=== PATIENT | female | born 1960 | race Caucasian/White ===

== ENCOUNTER → 2020-01-05 12:25 | Outpatient (CLI) | payer BC, SELFPAY ==
--- NOTE | ~2020-01-05 | MM_ITS ---
EXAMINATION: MM screening [facility] BI w lis HISTORY: Screening mammogram TECHNIQUE: Craniocaudal and mediolateral oblique 3-D tomosynthesis images were obtained and synthetic 2-D images were generated. CAD analysis was submitted and interpreted. COMPARISON: 12/12/2017, 11/26/2017, 11/21/2016 BREAST PARENCHYMAL COMPOSITION: The breasts are heterogeneously dense, which may obscure small masses . FINDINGS: There has been interval biopsy of calcifications previously seen in the right breast. There is no evidence of suspicious mass, calcification, or architectural distortion to suggest malignancy in either breast. There has been no suspicious interval change. IMPRESSION: 1. No mammographic evidence of malignancy. 2. Recommend routine screening mammography in one year. BI-RADS Category 1: Negative Reviewed, dictated and finalized at location A.
== END ==
PROVIDERS: PCP Internal Medicine; Visit Provider Obstetrics & Gynecology
DX: Z12.31 Encounter for screening mammogram for malignant neoplasm of breast (principal)
CPT/HCPCS: 77063; 77067

== ENCOUNTER 2020-09-03 01:02 | Outpatient (CLI) | payer BC, SELFPAY ==
[2020-09-03 18:31] LABS: SARS-CoV-2 RNA PCR Negative
== END 2020-09-03 01:03 | disposition home or self-care (01) ==
LOC: ANHCOVIDDT 01:02
PROVIDERS: PCP Internal Medicine; Visit Provider Plastic Surgery
DX: Z01.812 Encounter for preprocedural laboratory examination (principal); Z20.828 Contact with and (suspected) exposure to other viral communicable diseases
CPT/HCPCS: 87635; C9803; U0003

== ENCOUNTER 2020-09-05 08:26 | Outpatient (CLI) | payer BC, SELFPAY ==
[2020-09-05 09:01] LABS: Anion Gap 6 mmol/L (8-16); Blood Urea Nitrogen 14 mg/dL (7-17); Carbon Dioxide 27 mmol/L (22-30); Chloride 103 mmol/L (98-107); Estimated Glomerular Filt Rate > 60; Glucose 102 mg/dL (65-105); Potassium 4.4 mmol/L (3.4-5.0); Sodium 136 mmol/L (137-145)
== END 2020-09-05 08:27 | disposition home or self-care (01) ==
LOC: ANHSURGERY 08:28
PROVIDERS: Anesthesiology; PCP Internal Medicine; Visit Provider Plastic Surgery
DX: Z01.818 Encounter for other preprocedural examination (principal); I10 Essential (primary) hypertension
CPT/HCPCS: 36415; 80048

== ENCOUNTER 2020-09-07 01:47 | Day surgery (SDC) | payer BC, SELFPAY ==
[2020-08-22 15:33] VITALS: BMI 28.0
--- NOTE | 2020-09-06 14:10 | WPDANESEPPF ---
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 Patient Data Age: 60 Gender: F Height: 5 ft 3 in Weight: 72 kg Allergies Allergy/AdvReac Type Severity Reaction Status Date / Time Sulfa (Sulfonamide Allergy Unknown Verified 09/07/20 06:23 Antibiotics) Home Medications Medication Instructions Recorded Confirmed Type biotin 5,000 mcg-silicon dioxide See Rx Instructions .ROUTE .COMPLEX 08/14/19 09/07/20 History 10 pu-L-tjromlhf 50 mg tablet ER levocetirizine 5 mg tablet 5 mg PO DAILY 08/14/19 09/07/20 History olyhgcpedzyd-Kd-xpog-minerals 1 tablet PO DAILY 08/18/19 09/07/20 History alprazolam 0.5 mg tablet 0.5 mg PO BID PRN #90 tablet 01/25/20 08/27/20 Rx lisinopril 20 mg tablet 20 mg PO DAILY #90 tablet 05/24/20 09/07/20 Rx meloxicam 15 mg tablet 15 mg PO DAILY #90 tablet 06/02/20 09/07/20 Rx montelukast 10 mg tablet 10 mg PO DAILY #90 tablet 06/02/20 09/07/20 Rx citalopram 40 mg tablet 40 mg PO DAILY #90 tablet 06/03/20 09/07/20 Rx hydrochlorothiazide 12.5 mg tablet 12.5 mg PO DAILY #90 tablet 07/30/20 09/07/20 Rx acyclovir 400 mg PO DAILY PRN 08/22/20 08/27/20 History aspirin [Adult Low Dose Aspirin] 81 mg PO DAILY 08/22/20 09/07/20 History ergocalciferol (vitamin D2) 50,000 unit PO EVERY OTHER DAY 08/22/20 09/07/20 History Patient hx anesthesia problems: post op nausea/vomiting Family hx anesthesia problems: none PMFSH Past Medical History Medical History (Updated 09/06/20 @ 14:09 by Gama Molina MD) Depression Essential (primary) hypertension Hypercholesterolemia Social History Social History Smoking status: Never smoker Second hand tobacco smoke exposure: No Alcohol intake: current Drinks per week: 1 Substance use: never Living arrangements: alone Anes - Eval Final PreProcedure Day of Procedure 09/06/20 14:10 Patient weight: obese Heart: regular rate and rhythm Lungs: clear to auscultation Airway: Mallampati scale class II Neurological: alert and oriented Last oral intake: >/= 8 hours ASA classification: III Emergent: no Anesthetic plan: proceed Anesthesia type and monitoring: general LMA and standard monitoring Informed Consent: The patient's anesthetic plan and its attendant risks and benefits were discussed with the patient/family/POA. Questions were solicited and answers provided to the satisfaction of the patient/family/POA.
[2020-09-07] VITALS (9 sets, daily range): BP systolic 112–140; BP diastolic 63–90; PULSE 63–80; RESP 14–18; TEMP 36.1–36.2; O2SAT 92–100
--- NOTE | ~2020-09-07 | XR_ITS ---
EXAMINATION: XR surgery orthopedic DATE: 09/07/2020 10:27 INDICATION: Arthroplasty right thumb. TECHNIQUE: 2 intraoperative fluoroscopic views of right wrist were obtained. I was not present. Fluor oscopy exposure time was 2 minutes 48 seconds. COMPARISON: Right wrist radiograph 02/10/2018 FINDINGS: There are changes of resection of trapezium. There is a radiopaque marker ulnar to base of second metacarpal. IMPRESSION: 1. Surgical changes including trapezium resection. Reviewed, dictated and finalized at location A. EDUCATOR
[2020-09-07] MEDS: LACTATED RINGERS 1,000 ML 30 ML IV CONT ×2 (06:30→10:50)
[2020-09-07] MEDS: SCOPOLAMINE 1.5 MG PATCH TRANSDERM (07:11)
--- NOTE | 2020-09-07 07:13 | WPDHPUPDATE1 ---
History and Physical Update Update Date/Time: 09/07/20 07:13 History and Physical has been reviewed, including an updated exam of the patient. There are NO changes in the patient's condition. Risks, benefits, and alternatives have been discussed and questions answered. Patient agrees to proceed with procedure.
--- NOTE | 2020-09-07 07:18 | WPDHPUPDATE1 ---
History and Physical Update Update Date/Time: 09/07/20 07:18 The patient has requested removal of a tender subcutaneous mass of the right index DIPJ. We will add that to the consent. History and Physical has been reviewed, including an updated exam of the patient. There are NO changes in the patient's condition. Risks, benefits, and alternatives have been discussed and questions answered. Patient agrees to proceed with procedure.
[2020-09-07] MEDS: ceFAZolin 2 GM/D5W 50 ML 2 GM/50 ML BAG IVPB (07:27)
--- NOTE | 2020-09-07 07:28 | SUR.PREOP ---
0720 taken to bathroom to void.
[2020-09-07] MEDS: LIDO 1%/EPINEPHRINE 1:100,000 20 ML VIAL 5 ML INFILTRATE (08:21)
--- NOTE | 2020-09-07 09:15 | SUR.OPER ---
Dr. Jordan made aware of 1 hour tourniquet time
--- NOTE | 2020-09-07 11:01 | P.OPB_ITS ---
Procedure Note - Brief Procedure Note - Brief Date of procedure: 09/07/20 Pre-op diagnosis: Right First CMC Joint OA Post-op diagnosis: same Procedure performed: Right trapezium arthroplasty with Arthrex InternalBrace. Implants: Arthrex two hole fixation button. Anesthesia: GETA Surgeon: Julien Jordan MD In Store Representative: Rachid Estimated blood loss (mL): 10 Packing: No Pathology: none sent Complications: No immediate complications Condition: stable Disposition: PACU
[2020-09-07] MEDS: fentaNYL CITRATE INJ (*CRX) 100 MCG/2 ML VIAL 25 MCG IV PUSH ×4 (11:19→13:03)
[2020-09-07] MEDS: oxyCODONE HCL (*CRX) 5 MG TAB IR PO (12:16)
--- NOTE | 2020-09-07 18:49 | P.OP_ITS ---
Procedure Note - Detailed Date of procedure: 09/07/20 Pre-op diagnosis: Right First CMC Joint OA Right first CMC joint osteoarthritis. Mucinous cyst of the right index finger. Post-op diagnosis: same Procedure performed: Right trapezium resection arthroplasty with Arthrex InternalBrace. Excision of mucinous cyst of the right index finger. Description of procedure: The right basal joint was marked on the patient in h olding. She confirmed the site. She was transported to the operating room and placed supine on the operating table. She was administered general endotracheal anesthesia. A time-out was held and confirmed. The right upper extremity was prepped and draped in the usual fashion. The site was marked for incision. The site was locally infiltrated with 1% lidocaine with epinephrine. The tourniquet was inflated to 250 mmHg. This patient had been given 2 g of Ancef preop The dog leg incision was made as marked centered over the basal joint. There was a large osteophyte on the radial aspect of the metacarpal base and our deep incision ended up being dorsal to the APL and EPB tendons. The capsule was incised. The trapezium was dissected peripherally with sharp and blunt dissection. Eventually the trapezium was broken in two with an osteotome and the osseous material removed piecemeal with a rongeur. The large peripheral osteophytes were removed. Completion of that process was confirmed with C-arm images. The radial aspect of the metacarpal base was then dissected to allow placement of the internal brace anchor. This step required access palmar to the extensor pollicis brevis and abductor pollicis longus. Dissection next was undertaken to expose the radial base of the 2nd metacarpal. This also was done with images provided by the C-arm. The 2nd metacarpal anchor was placed using the Arthrex technique. The drill hole for the 2nd anchor at the radial base of the metacarpal was made. The anchor was sunk. At that point we realized the there was too much slack in the tape. We backed the anchor out of the 1st metacarpal and tried to re tension the tape. In this process the 2nd metacarpal anchor extruded releasing that end of the tape. Our plan then was to complete the fenestration through the 2nd metacarpal and utilize a button construct. A loop tendon puller was passed through the 2nd metacarpal to retrieve the tapes from the 1st and pull them through the ulnar cortex of the 2nd to be tied over the button. This was successful. At that point final images were made. Capsular material was reapproximated with 3-0 Vicryl. Skin was closed with a running 5 0 nylon. Throughout this case great care was taken to preserve neurological structures traversing the open wound. The tourniquet time was 98 minutes the 1st part. The tourniquet was released for approximately 25 minutes as we did some other work. The tourniquet was again up for 31 minutes before closing the wound. The mucin cyst was removed at that time from the index finger through a dorsal midline incision. A digital tourniquet had been placed on that finger. The ganglion was apparently superficial. No osteophyte was encountered the wound was closed with a running 5 0 nylon. A bulky bandage was applied to the thumb a. No splint was utilized. She was awakened and discharged from the operating room in stable condition. She is being discharged home with instructions in wou nd care and follow-up Anesthesia: PHANI Surgeon: Julien Jordan MD Board Certified Family Physician: Rachid Estimated blood loss (mL): 10 Drains: No Packing: No Pathology: none sent Complications: No immediate complications Condition: stable Disposition: PACU
== END 2020-09-07 13:45 | disposition home or self-care (01) ==
PROVIDERS: PCP Internal Medicine; Visit Provider Plastic Surgery
PROC: (CPT 25447; principal; 2020-09-07 07:30)
DX: M18.11 Unilateral primary osteoarthritis of first carpometacarpal joint, right hand (principal); L72.8 Other follicular cysts of the skin and subcutaneous tissue; I10 Essential (primary) hypertension; E78.00 Pure hypercholesterolemia, unspecified; F32.9 Major depressive disorder, single episode, unspecified; E66.9 Obesity, unspecified; Z68.31 Body mass index [BMI] 31.0-31.9, adult
CPT/HCPCS: 25447; A9270; J0330; J0690; J1100; J2250; J2405; J2704; J3010; J7120

== ENCOUNTER 2020-10-03 12:30 | Outpatient (RCR) | payer BC, SELFPAY ==
--- NOTE | 2020-09-23 11:26 | OTOPEVAL ---
OCCUPATIONAL THERAPY EVALUATION REPORT 09/23/2020 Thank you for referring Neli Duran to [facility].? The patient is scheduled to be seen for therapy? 2x/week for 4 weeks. Please review, sign, date and return this plan of care SARAH. I agree with and certify that the following plan of care is medically necessary. Referring Physician Date Referring Provider: Julien Jordan MD *OT Outpatient Evaluation Therapy Assessment Status Assessment Status Assessment Status Evaluation Outpatient Past Medical History Neurological History Hx Neurological Disorders No Significant History Cardiovascular History Hx Hypercholesterolemia Yes Hx Hypertension Yes Respiratory History Hx Respiratory Disorders No Significant History Gastrointestinal History Hx Gastrointestinal Disorders No Significant History Genitourinary History Hx Genitourinary Disorders No Significant History Musculoskeletal History Hx Arthritis Yes Hx Back Pain Yes Hx Spinal Surgery Yes: 2012 STENOSIS Hematological History Hx Hematological Disorders No Significant History Endocrine History Hx Endocrine Disorders No Significant History HEENT History Hx Cataracts Yes: removed Hx Sinus Problems Yes Integumentary History Hx Skin Disorders No Significant History Reproductive History Hx Reproductive Disorders No Significant History Psychosocial History Hx Depression Yes Pain History Has Past Pain Affected Your Daily Life Yes Anesthesia History Hx Anesthesia Reactions No Significant History Evaluation Information Problem Diagnosis (R) CMC arthritis Additional Evaluation Detail Post op (09/07/20) right trapezium resection with Arthrex internal brace Subjective Information Neli states that since Query Text:As Reported By Patient/ surgery she has been having Family difficulty with gripping, pinching, and using scissors. She has returned to being able to use the right hand to brush her teeth. 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 Prior Level of Function Activity Level (Last 3 Months) Hand Dominance Right Pain Assessment Timing of Pain Assessment Timing of Pain Assessment Assessment Pain Scale Pain Scale Used Numeric (1 - 10) Self Report Pain Assessment Right Thumb(s) Reported Pain Level 2 Pain Description Tingling Other Pain Description stinging Lowest Pain Intensity 2 Greatest Pain Intensity 5 Pain Aggravating Factors ADL's
--- NOTE | 2020-10-19 13:20 | OTOPEVAL ---
OCCUPATIONAL THERAPY RE-EVAL AND DISCHARGE REPORT 10/19/20 Neli has returned to near normal AROM of the right thumb and has progressed to having no limitations functionally other than having some shaking with pinching due to weakness. She understands that strength will build over time and she is independent with strengthening HEP. No further skilled OT indicated and she is being discharged with goals met. Thank you for referring Neli Duran to [facility]. Please review, sign, date and return this plan of care SARAH. I agree with and certify that the following plan of care is medically necessary. Referring Physician Date Referring Provider: Julien Jordan MD *OT Outpatient Re-Evaluation Evaluation Information Problem Diagnosis (R) CMC arthritis Additional Evaluation Detail Post op (09/07/20) right trapezium resection with Arthrex internal brace. She has participated in 6 OT treatment sessions that have focused on scar management, ROM, and gentle strengthening with light resistive theraputty. She has made excellent progress and is ready for discharge. Subjective Information Neli states that she has Query Text:As Reported By Patient/ returned to doing everything Family with the right hand. She states that she might have some shaking with use but understands that she still has some weakness. She is able to clip her nails using the right thumb to pinch the clippers. Pain Assessment Timing of Pain Assessment Timing of Pain Assessment Re-assessment Pain Scale Pain Scale Used Numeric (1 - 10) Self Report Pain Assessment Right Thumb(s) Reported Pain Level 0 Lowest Pain Intensity 0 Greatest Pain Intensity 5 Pain Score Pain Score 0: Self Report Additional Pain Score Comments Pt reports an intermittent stabbing pain that comes out of no where but subsides quickly. She states this happens 1-2x/time. Upper Extremity Range of Motion Wrist Range of Motion Right Wrist Flexion - Active 75 Wrist Extension - Active 70 Wrist Radial Deviation - Active 20 Wrist Ulnar Deviation - Active 35 Wrist Range of Motion Comments (R) wrist AROM returned to normal limits and is symmetrical to the left. Thumb Range of Motion Ri
== END 2020-10-20 11:20 | disposition home or self-care (01) ==
LOC: ANHOT 12:30
PROVIDERS: PCP Internal Medicine; Referring Provider Plastic Surgery; Visit Provider Plastic Surgery
DX: Z48.89 Encounter for other specified surgical aftercare (principal)
CPT/HCPCS: 97018; 97110; 97140; 97165

== ENCOUNTER → 2021-01-12 12:30 | Outpatient (CLI) | payer BC, SELFPAY ==
--- NOTE | ~2021-01-12 | MM_ITS ---
EXAMINATION: MM screening [facility] BI w lis HISTORY: Screening mammogram TECHNIQUE: Craniocaudal and mediolateral oblique 3-D tomosynthesis images were obtained and synthetic 2-D images were generated. CAD analysis was submitted and interpreted. COMPARISON: 01/05/2020 bilateral digital screening mammogram 12/12/2017 diagnostic right mammogram 11/26/2017, 11/21/2016 bilateral digital screening mammogram examinations BREAST PARENCHYMAL COMPOSITION: There are scattered areas of fibroglandular density. FINDINGS: There are scattered bilateral benign calcifications. Bilateral benign-appearing axillary ta il lymph nodes. There is a biopsy marker on the right; history of prior benign right breast biopsy. T here is no evidence of suspicious mass, calcification, or architectural distortion to suggest maligna ncy in either breast. There has been no suspicious interval change. IMPRESSION: 1. No mammographic evidence of malignancy. 2. Recommend routine screening mammography in one year. BI-RADS Category 2: Benign finding(s). Reviewed, dictated and finalized at location A.
== END ==
PROVIDERS: PCP Internal Medicine; Visit Provider Obstetrics & Gynecology
DX: Z12.31 Encounter for screening mammogram for malignant neoplasm of breast (principal)
CPT/HCPCS: 77063; 77067

== ENCOUNTER → 2021-04-20 09:35 | Outpatient (CLI) | payer BC, SELFPAY ==
--- NOTE | ~2021-04-20 | XR_ITS ---
XR hip BI wo pelvis DATE: 04/20/2021 10:14 INDICATION: Right hip pain TECHNIQUE: AP and lateral views of each hip COMPARISON: None FINDINGS: There is prominent joint space narrowing as well as degenerative spurring of both hip joint s consistent with prominent bilateral hip osteoarthritis. No fracture or dislocation, avascular necrosis or bone destruction is detected. The pubic symphysis and sacroiliac joints are intact. Degenerative disc disease at L4-5 and particularly L5-S1. IMPRESSION: Prominent bilateral hip osteoarthritis Degenerative disc disease at L4-5 and particularly L5-S1 Reviewed, dictated and finalized at location A.
--- NOTE | ~2021-04-20 | XR_ITS ---
XR lumbar spine 2-3V DATE: 04/20/2021 10:14 INDICATION: Back pain TECHNIQUE: AP, lateral, coned lateral lumbosacral views COMPARISON: None FINDINGS: There is diffuse osteopenia. Mild dextroscoliosis of the lumbar spine. There is severe degenerative disc disease at L1-2, L2-3, L3-4 and L5-S1. No fracture or dislocation or bone destruction is evident. The lumbar pedicles are intact. The sacroiliac joints are intact. Bilateral hip osteoarthritis. IMPRESSION: Severe degenerative disc disease at L1-2, L2-3, L3-4 and L5-S1 Mild dextro scoliosis Osteopenia Reviewed, dictated and finalized at location A.
== END ==
PROVIDERS: PCP Internal Medicine; Visit Provider Internal Medicine
DX: M16.0 Bilateral primary osteoarthritis of hip (principal); M51.37 Other intervertebral disc degeneration, lumbosacral region; M51.36 Other intervertebral disc degeneration, lumbar region; M85.88 Other specified disorders of bone density and structure, other site
CPT/HCPCS: 72100; 73521

== ENCOUNTER 2021-06-02 12:21 | Outpatient (CLI) | payer BC, SELFPAY ==
[2021-06-02 12:57] LABS: Hematocrit 42.7 % (37.0-47.0); Hemoglobin 14.6 g/dL (12.0-15.0)
--- NOTE | 2021-06-02 13:04 | ECG_ITS ---
Measurements Intervals [place] Rate: 60 P: 46 OH: 168 QRS: 31 QRSD: 81 T: 23 QT: 445 QTc: 447 Interpretive Statements SINUS RHYTHM DELAYED PRECORDIAL R/S TRANSITION BORDERLINE ECG Electronically Signed On 06-02-2021 13:35:14 CDT by Kar Zafar D.O.
[2021-06-02 13:13] LABS: Albumin Level 4.7 g/dL (3.5-5.1); Estimated Glomerular Filt Rate > 60; Glucose 84 mg/dL (65-110)
[2021-06-02 14:53] LABS: Urine Cotinine NEGATIVE
[2021-06-02 15:39] LABS: Hemoglobin A1C 5.4 % (<5.7)
== END 2021-06-02 12:22 | disposition home or self-care (01) ==
PROVIDERS: PCP Internal Medicine; Visit Provider Orthopaedic Surgery
DX: M16.11 Unilateral primary osteoarthritis, right hip (principal); Z01.818 Encounter for other preprocedural examination; R94.31 Abnormal electrocardiogram [ECG] [EKG]
CPT/HCPCS: 80307; 82040; 82565; 82947; 83036; 85014; 85018; 93005

== ENCOUNTER 2021-06-19 07:56 | Outpatient (CLI) | payer BC, SELFPAY ==
[2021-06-19 09:09] LABS: Basophils Percent Auto 0.2 % (0.2-1.2); Eosinophils Absolute Auto 0.1 K/mm3 (0-0.3); Hematocrit 40.3 % (37.0-47.0); Hemoglobin 13.9 g/dL (12.0-15.0); Immature Granulocyte Absolute 0.01 K/mm3 (0.00-0.031); Immature Granulocyte Percent A 0.2 % (0-0.5); Lymphocytes Percent Auto 36.1 % (18.3-44.2); Mean Corpuscular HGB Conc 34.5 g/dl (32-36); Mean Corpuscular Hemoglobin 34.8 pg (26-34); Mean Corpuscular Volume 100.8 fl (80-100); Mean Platelet Volume 8.7 fl (7.4-10.4); Monocytes Absolute Auto 0.5 K/mm3 (0.1-0.6); Monocytes Percent Auto 10.4 % (2.6-8.5); Neutrophils Absolute Auto 2.3 K/mm3 (1.3-6.7); Neutrophils Percent Auto 51.1 % (45.5-73.1); Platelet Count Result 303 k/mm3 (150-375); Red Cell Distribution Width 12.1 % (11.5-14.5); White Blood Count 4.4 K/mm3 (4.5-10.0)
[2021-06-19 09:20] LABS: Anion Gap 9 mmol/L (8-16); Blood Urea Nitrogen 15 mg/dL (7-17); Calcium 9.4 mg/dL (8.4-10.2); Carbon Dioxide 27 mmol/L (22-30); Chloride 102 mmol/L (98-107); Estimated Glomerular Filt Rate > 60; Glucose 95 mg/dL (65-110); Potassium 4.4 mmol/L (3.4-5.0); Sodium 138 mmol/L (137-145)
== END 2021-06-19 07:57 | disposition home or self-care (01) ==
PROVIDERS: Anesthesiology; PCP Internal Medicine; Visit Provider Orthopaedic Surgery
DX: Z01.812 Encounter for preprocedural laboratory examination (principal); Z51.81 Encounter for therapeutic drug level monitoring; Z79.899 Other long term (current) drug therapy; M16.11 Unilateral primary osteoarthritis, right hip
CPT/HCPCS: 36415; 80048; 85025; 87081

== ENCOUNTER → 2021-07-08 00:27 | Outpatient (CLI) | payer BC, SELFPAY ==
[2021-07-08 19:35] LABS: SARS-CoV-2 RNA PCR Negative
== END ==
PROVIDERS: PCP Internal Medicine; Visit Provider Orthopaedic Surgery
DX: Z01.812 Encounter for preprocedural laboratory examination (principal); Z20.822 Contact with and (suspected) exposure to COVID-19
CPT/HCPCS: C9803; U0003; U0005

== ENCOUNTER 2021-07-11 00:23 | Day surgery (SDC) | payer BC, SELFPAY ==
[2021-06-19 08:32] VITALS: BP 168/98; PULSE 64; RESP 20; TEMP 37.7; O2SAT 97; BMI 31.4
[2021-07-11] VITALS (19 sets, daily range): BP systolic 109–145; BP diastolic 66–94; PULSE 66–85; RESP 14–22; TEMP 36.4–37.2; O2SAT 95–99; BMI 31.1
--- NOTE | ~2021-07-11 | XR_ITS ---
EXAMINATION: XR hip RT min 2V DATE: 07/11/2021 10:28 INDICATION: Postoperative evaluation following right total hip arthroplasty TECHNIQUE: Anteroposterior and lateral views of the right hip were obtained. COMPARISON: 06/19/2021 FINDINGS: Interval placement of a right total hip arthroplasty which appears well seated in near anatomic align ment. Expected subcutaneous gas in the postoperative bed. No fractures identified. IMPRESSION: 1. Right total hip arthroplasty, negative for postoperative purposes. Reviewed, dictated and finalized at location B.
--- NOTE | 2021-07-11 06:48 | WPDANESEPPF ---
Anes - Initial Pre Proc Eval Procedure: Operation Date: 07/11/21 07:30 Proposed Procedures p Right Total Hip Arthroplasty - Torres Moore MD Date/Time: 07/11/21 06:48 Surgeon: Torres Moore MD Pre Op Diagnosis: primary OA right hip Patient Data Age: 61 Gender: F Height: 1.59 m Weight: 79.8 kg Last Vital Signs Temp 37.7 C H 06/19/21 08:32 Pulse 64 06/19/21 08:32 Resp 20 06/19/21 08:32 BP 168/98 H 06/19/21 08:32 Pulse Ox 97 06/19/21 08:32 Allergies Allergy/AdvReac Type Severity Reaction Status Date / Time Sulfa (Sulfonamide Allergy UNKOWN-SISTER Verified 07/11/21 06:06 Antibiotics) HAD LABEL MAKER N/V WT SULFA Home Medications Medication Instructions Recorded Confirmed Type biotin 5,000 mcg-silicon dioxide See Rx Instructions .ROUTE .COMPLEX 08/14/19 07/11/21 History 10 rv-G-kthpiouz 50 mg tablet ER acyclovir 400 mg PO DAILY PRN 08/22/20 07/11/21 History aspirin 81 mg PO DAILY 08/22/20 07/11/21 History meloxicam 15 mg tablet 15 mg PO DAILY #90 tablet 01/09/21 07/11/21 Rx esomeprazole magnesium 20 mg 20 mg PO DAILY 05/09/21 07/11/21 History capsule,delayed release alprazolam 0.5 mg tablet 0.5 mg PO BID PRN #90 tablet 05/10/21 07/11/21 Rx cyanocobalamin (vitamin B-12) 1,000 mcg PO QAM 06/19/21 07/11/21 History ergocalciferol (vitamin D2) 10 mcg PO DAILY 06/19/21 07/11/21 History ergocalciferol (vitamin D2) 50 mcg PO QAM 06/19/21 07/11/21 History hydrochlorothiazide 12.5 mg PO QAM 06/19/21 07/11/21 History levocetirizine [Xyzal] 5 mg PO DAILY 06/19/21 07/11/21 History lisinopril 20 mg PO QAM 06/19/21 07/11/21 History montelukast [Singulair] 10 mg PO HS 06/19/21 07/11/21 History multivitamin [Multi-Vitamin] 1 tablet PO DAILY 06/19/21 07/11/21 History citalopram 40 mg tablet 40 mg PO DAILY #90 tablet 07/06/21 07/11/21 Rx Patient hx anesthesia problems: none Family hx anesthesia problems: none Results Review: All pre-operative results and documents have been reviewed as part of the pre-operative evaluation. [facility] Past Medical History Medical History (Updated 07/11/21 @ 06:49 by Leno Godfrey DO) Anxiety Carpal tunnel syndrome (~2011) Depression Essential (primary) hypertension GERD (gastroesophageal reflux disease) History of spinal stenosis (~2011) Hypercholesterolemia PONV (postoperative nausea and vomiting) Family History Family History Grandparent Breast cancer Grandparent Ovarian cancer Mother Breast cancer Arthritis Father Arthritis Social History Social History Second hand tobacco smoke exposure: No Alcohol intake: current Drinks per week: 1 Alcohol use details: STATES MAYBE 2-3 DRINKS/MONTH Substance use: never Substance use type: does not use Living arrangements: with friend(s) Spiritual care concerns: No Anes - Eval Final PreProcedure Day of Procedure 07/11/21 06:48 Patient weight: obese Heart: regular rate and rhythm Lungs: clear to auscultation and normal air movement Airway: Mallampati scale class II Neurological: alert and oriented Last oral intake: >/= 8 hours ASA classification: III Emergent: no Anesthetic plan: proceed Anesthesia type and monitoring: general ETT and standard monitoring Results Review: All pre-operative results and documents have been reviewed as part of the pre-operative evaluation. Informed Consent: The patient's anesthetic plan and its attendant risks and benefits were discussed with the patient/family/POA. Questions were solicited and answers provided to the satisfaction of the patient/family/POA.
[2021-07-11] MEDS: LACTATED RINGERS 1,000 ML 30 ML IV CONT ×2 (06:54→10:03)
[2021-07-11] MEDS: ACETAMINOPHEN 500 MG TABLET 1000 MG PO (06:56)
[2021-07-11] MEDS: TRANEXAMIC ACID 1,000MG/ISO100 1,000 MG/100 ML BAG 200 MG IVPB (06:56)
--- NOTE | 2021-07-11 07:15 | WPDHPUPDATE1 ---
History and Physical Update Update Date/Time: 07/11/21 07:15 History and Physical has been reviewed, including an updated exam of the patient. There are NO changes in the patient's condition. Risks, benefits, and alternatives have been discussed and questions answered. Patient agrees to proceed with procedure.
[2021-07-11] MEDS: SCOPOLAMINE 1.5 MG PATCH TRANSDERM (07:20)
[2021-07-11] MEDS: FAMOTIDINE 20 MG/2 ML VIAL IV PUSH (07:20)
[2021-07-11] MEDS: ceFAZolin 2 GM/D5W 50 ML 2 GM/50 ML BAG IVPB ×2 (07:34→17:35)
--- NOTE | 2021-07-11 09:59 | P.OP_ITS ---
Procedure Note - Detailed Date of Procedure 07/11/21 Pre-op Diagnosis primary OA right hip Post-op Diagnosis same Procedure Performed Right Total Hip Arthroplasty Surgeon Torres Moore MD Lathe Set Up Operator Laila Brown PA-C Anesthesia general Description of Procedure The patient was given preoperative antibiotics. A general anesthetic was administered. The patient was carefully placed in the lateral decubitus position on the PEG board. The shoulders and hips were carefully positioned for component and leg length positioning reference. The hip was prepped and draped in the usual sterile fashion. A longitudinal incision was created over the posterior aspect of the greater trochanter. Careful dissection was brought down through the deep fascia with electrocautery. A minimally invasive optimized posterior approach to the hip was performed. The short external rotators and capsule were taken down in an L-shaped capsulotomy. The tissue was tagged for later repair using number 2 high strength suture. The femoral neck was measured and taken in situ. The femoral head was removed. The acetabulum was carefully exposed. The inferior capsule was released. The labrum was resected. The acetabulum was sequentially reamed to the intended cup size. The cup was impacted into position with excellent press-fit. Typical anatomic landmarks, including the bony contact points as well as the inferior transverse acetabular ligament were used to confirm cup positioning with preoperative templating. Attention was turned to the femur, which was carefully exposed. The hip was reamed and then broached sequentially. Excellent press-fit was obtained with the broach. The hip was trialed. Measurements were utilized, including the lesser trochanter as well as the center of the femoral head and the tip of the trochanter, and excellent assessment of the offset and leg lengths were confirmed. The real component was impacted into position. Trialing confirmed appropriate leg length and offset with soft tissue balancing as well apparent feel of the leg, both at the knee and the heel. Soft tissues were assessed using the the iliotibial band. Reduction of the posterior capsule and external rotators were also used as a secondary assessment. The hip was copiously irriga kaci with pulsatile lavage antibiotic solution periodically throughout the procedure. The real components were then assembled and reduced. The hip was stable throughout typical maneuvers, including extension, external rotation to 70 degrees, the position of sleep as well as flexion to 90 degrees with internal rotation past 30 degrees. The shake test confirmed stability without impingement. Osteophytes were removed as necessary. The short external rotators and capsule were repaired back to the posterior trochanter through drill holes. The deep fascia was repaired with running number 2 Quill suture, followed by 0 Stratafix suture and 2-0 Stratafix suture in the dermis. Steri- Strips were placed on the skin, followed by a sterile silver occlusive dressing. There were no complications. Meticulous hemostasis was maintained with the AquaMantys device. The patient was brought to the recovery room in stable condition. There were no complications. Implants The Accolade II hip stem, 127 degree size 4 , was utilized with excellent press-fit. The 50 mm Trident II acetabular component was impacted with excellent press-fit stability. The -4 , 32 mm Biolox ceramic femoral head was utilized. Estimated Blood Loss 200 Drains No Packing No Pathology none sent Complications No immediate complications Condition stable Disposition PACU
--- NOTE | 2021-07-11 10:35 | SUR.PHASEI ---
1020 2 VIEWS OF XRAYS TAKEN OF RT HIP IN PACU.
[2021-07-11] MEDS: fentaNYL CITRATE INJ (*CRX) 100 MCG/2 ML VIAL 25 MCG IV PUSH ×4 (11:02→12:00)
--- NOTE | 2021-07-11 13:05 | ADMGEN ---
This patient, Neli Duran, was admitted to Medical Room 246-01. Patient/family oriented to hospital policies and general routines including ID bracelet, bed and alarms, visiting hours, pain management, procedures, bathroom and other care routines, personal items, smoking policy, room service/diet, and visiting hours. Information on how to activate the Rapid Response Team has been discussed. Patient/Family are encouraged to report perceived risks to care and to ask questions if they do not understand what they are told or what they should do.
--- NOTE | 2021-07-11 13:15 | PCOTNOTE ---
Attempted OT evaluation, per RN patient is sleepy, will follow and attempt at later time
[2021-07-11] MEDS: SODIUM CHLORIDE 0.9% IV 1,000 ML 125 ML IV CONT (13:33)
[2021-07-11] MEDS: oxyCODONE HCL (*CRX) 5 MG TAB IR PO ×2 (15:05→23:26)
[2021-07-11] MEDS: DOCUSATE SODIUM 100 MG CAPSULE PO (17:07)
[2021-07-11] MEDS: PROPARACAINE HCL 0.5% 15 ML OPHTH SOLN 1 DROP EACH EYE (17:34)
[2021-07-11] MEDS: oxyCODONE HCL (*CRX) 5 MG TAB IR 10 MG PO (19:49)
[2021-07-11] MEDS: DICLOFENAC SODIUM 0.1% OPHTH SOLN 2.5 ML BOTTLE 1 DROP EACH EYE (21:11)
[2021-07-11] MEDS: MONTELUKAST SODIUM 10 MG TABLET PO (21:11)
[2021-07-11] MEDS: CYCLOBENZAPRINE HCL 10 MG TABLET PO (21:25)
[2021-07-12] MEDS: ceFAZolin 2 GM/D5W 50 ML 2 GM/50 ML BAG IVPB ×2 (02:13→10:35)
[2021-07-12] MEDS: oxyCODONE HCL (*CRX) 5 MG TAB IR 10 MG PO ×3 (02:20→13:11)
[2021-07-12 03:14] VITALS: BP 149/79; PULSE 66; RESP 17; TEMP 36.9; O2SAT 96
[2021-07-12] MEDS: CYCLOBENZAPRINE HCL 10 MG TABLET PO (05:57)
[2021-07-12] MEDS: DICLOFENAC SODIUM 0.1% OPHTH SOLN 2.5 ML BOTTLE 1 DROP EACH EYE ×2 (05:57→13:17)
[2021-07-12] MEDS: CYANOCOBALAMIN 1,000 MCG TABLET 1000 MCG PO (08:19)
[2021-07-12] MEDS: LORATADINE 10 MG TABLET PO (08:20)
[2021-07-12] MEDS: hydroCHLOROthiazide 25 MG TABLET PO (08:20)
[2021-07-12] MEDS: CITALOPRAM HYDROBROMIDE 20 MG TABLET 40 MG PO (08:20)
[2021-07-12] MEDS: PANTOPRAZOLE 40 MG TABLET PO (08:20)
[2021-07-12] MEDS: MELOXICAM 7.5 MG TABLET 15 MG PO (08:20)
[2021-07-12] MEDS: lisinopriL 20 MG TABLET 40 MG PO (08:20)
[2021-07-12] MEDS: MULTIVITAMINS THERAPEUTIC TAB (*BKC) 1 TABLET PO (08:20)
[2021-07-12] MEDS: DOCUSATE SODIUM 100 MG CAPSULE PO ×2 (08:20→16:38)
[2021-07-12] MEDS: ASPIRIN 81 MG ENTERIC TABLET PO (08:20)
[2021-07-12 10:31] VITALS: BP 122/66; PULSE 80; RESP 18; TEMP 36.7; O2SAT 95
[2021-07-12 14:31] VITALS: BP 124/65; PULSE 75; RESP 18; TEMP 36.8; O2SAT 96
--- NOTE | 2021-07-12 14:40 | WPDANESPN ---
Anes - Prog Note Post-Op Date/Time: 07/12/21 14:40 Cardiovascular status: normal Respiratory status: normal Airway patency: baseline Mental status: baseline Post-Op hydration status: normal Vital Signs: Last Vital Signs Temp 36.7 C 07/12/21 10:31 Pulse 80 07/12/21 10:31 Resp 18 07/12/21 10:31 BP 122/66 07/12/21 10:31 Pulse Ox 95 07/12/21 10:31 Pain Score (VAS): 0 I/O: Intake & Output 07/11/21 07/12/21 07/12/21 23:59 07:59 15:59 Intake Total 1131 1450 720 Output Total 800 Balance 1131 650 720 Post-procedural complaints: none Patient Feedback: Patient satisfied with anesthetic care.
--- NOTE | 2021-07-12 16:14 | PM.DS ---
DS: Admitting Diagnosis Discharge Date 07/12/21 Admitting Diagnosis OA Right hip DS: Discharge Diagnosis Discharge Diagnosis (1) Status post total hip replacement, right: Code(s): Z96.641 - Presence of right artificial hip joint Status: Acute Assessment and Plan: Postop day 1: Total hip arthroplasty. Patient tolerated procedure well. No complications. Pain manageable with pain medication. No numbness or tingling. No N/V. We had a lengthy discussion regarding postoperative wound care, limitations, expectations, and exercises. Patient shows good understanding. Patient has had initial physical therapy and is tolerating it well. She did have some mild bloody drainage on Mepilex. No increase in drainage throughout the day. Bandage changed. Large amount of bruising. Notified patient to call the office if drainage worsens or she has any blistering. DVT prophylaxis: 81 mg baby aspirin b.i.d. for 14 days. Short frequent walks. Pain medication: Percocet. Meloxicam. Patient has followup appointment with Dr. Moore in 3 weeks DS: Summary Hospital Course Reason for hospitalization: Total hip arthroplasty Hospital Course: Patient tolerated procedure well. Has had initial PT/OT and made good progress. Status at Discharge Functional status at discharge: uses cane/walker Overall status at discharge: patient is progressing back to baseline Time Spent with Patient Time attestation: Total time spent providing and/or coordinating discharge services: Exam Narrative: Overweight 61 y/o female. Resting comfortably in bed. Wearing compression socks bilaterally. Dressing dry and intact with no drainage. Moderate swelling. Large amount of ecchymosis. No erythema. Range of motion limited due to pain. Calf nontender. Thigh nontender. Neurologic status intact. No varicosities. Distal pulses palpable. Discharge Plan Discharge Patient Disposition: Home, Self-Care Discharge Instructions: Remove the Scopolamine patch that was placed behind your ear in 72 hours or less. Wash your hands after touching. See instruction sheet. Stand Alone Forms: General Discharge Instructions Follow-up/Referrals: Laila Brown PA [Physician Traveling Accountant] - Discharge Medications: New aspirin 81 mg tablet,delayed release (DR/EC) 81 mg PO BID 14 Days Qty: 28 RF: 0 oxycodone-acetaminophen 5-325 mg tablet 1 - 2 tablet PO Q4-6H MDD 8 PRN (Reason: pain) Qty: 30 RF: 0 Held aspirin 81 mg Tablet 81 mg PO DAILY RF: 0 Hold Instructions: Resume on 07/26/21. Take one tewice a day for 2 weeks then back to normal one a day dose. No Action biotin-silicon [id number] 5,000 mcg -10 mg-50 mg tablet extended release See Rx Instructions .ROUTE .COMPLEX RF: 0 esomeprazole magnesium [Nexium] 20 mg capsule,delayed release(DR/EC) 20 mg PO DAILY RF: 0 acyclovir 400 mg tablet 400 mg PO DAILY PRN (Reason: FEVER BLISTER) RF: 0 multivitamin [Multi-Vitamin] Tablet 1 tablet PO DAILY RF: 0 levocetirizine [Xyzal] 5 mg Tablet 5 mg PO DAILY RF: 0 cyanocobalamin (vitamin B-12) 1,000 mcg Capsule 1,000 mcg PO QAM RF: 0 lisinopril 20 mg tablet 40 mg PO QAM RF: 0 montelukast [Singulair] 10 mg tablet 10 mg PO HS RF: 0 hydrochlorothiazide 12.5 mg tablet 25 mg PO QAM RF: 0 ergocalciferol (vitamin D2) 1,000 unit Tablet 1 tablet PO DAILY RF: 0 meloxicam [Mobic] 15 mg tablet 15 mg PO DAILY Qty: 90 RF: 1 alprazolam [Xanax] 0.5 mg tablet 0.5 mg PO BID PRN (Reason: anxiety) Qty: 90 RF: 0 citalopram [Celexa] 40 mg tablet 40 mg PO DAILY Qty: 90 RF: 1
== END 2021-07-12 17:33 | disposition home or self-care (01) ==
LOC: ANHSURGERY 07:21 → ANH2MED 12:59
PROVIDERS: PCP Internal Medicine; Visit Provider Orthopaedic Surgery
PROC: (CPT 27130; principal; 2021-07-11 07:30)
DX: M16.11 Unilateral primary osteoarthritis, right hip (principal); I10 Essential (primary) hypertension; E78.00 Pure hypercholesterolemia, unspecified; F41.8 Other specified anxiety disorders; E66.9 Obesity, unspecified; Z68.31 Body mass index [BMI] 31.0-31.9, adult; Z79.82 Long term (current) use of aspirin
CPT/HCPCS: 27130; 36415; 73502; 86850; 86900; 86901; 97110; 97116; 97162; 97165; 97530; 97535; A9270; C1776; J0131; J0171; J0690; J1885; J2250; J2270; J2795; J3010; J7030; J7120

== ENCOUNTER → 2021-08-08 07:40 | Outpatient (CLI) | payer BC, SELFPAY ==
--- NOTE | ~2021-08-08 | US_ITS ---
EXAMINATION: US abdomen complete DATE: 08/08/2021 08:13 INDICATION: Other specified abnormal findings of blood chemistry TECHNIQUE: Multiple grayscale and Doppler ultrasound images of the abdomen were obtained. COMPARISON: None available FINDINGS: Bowel gas obscures visualization of the pancreas. The liver demonstrates increased echogeni city, heterogenous echotexture, and decreased through transmission. No surface nodularity. Normal hep atopetal flow in the main portal vein. The gallbladder is normal with no abnormal wall thickening, pe richolecystic fluid or stones. The normal common bile duct measures 3 mm. There was no sonographic Mu rphy sign. The visualized portions of the aorta and inferior vena cava are normal. The right kidney measures 10.0 x 5.4 x 5.9 cm. The left kidney measures 9.7 x 5.9 x 5.6 cm. The kidne ys demonstrate normal parenchymal echogenicity. There is no hydronephrosis. The spleen is normal in a ppearance and measures 9.0 cm. IMPRESSION: 1. Diffuse hepatic steatosis. Reviewed, dictated and finalized at location B.
== END ==
PROVIDERS: PCP Internal Medicine; Visit Provider Internal Medicine
DX: R79.89 Other specified abnormal findings of blood chemistry (principal); K76.0 Fatty (change of) liver, not elsewhere classified
CPT/HCPCS: 76700

== ENCOUNTER 2021-08-22 10:09 | Outpatient (CLI) | payer BC, SELFPAY ==
[2021-08-22 11:42] LABS: Urine Cotinine NEGATIVE
== END 2021-08-22 10:10 | disposition home or self-care (01) ==
LOC: ANHSURGERY 10:11
PROVIDERS: PCP Internal Medicine; Visit Provider Orthopaedic Surgery
DX: M16.12 Unilateral primary osteoarthritis, left hip (principal); Z01.818 Encounter for other preprocedural examination
CPT/HCPCS: 80307; 86850; 86900; 86901; 87081

== ENCOUNTER → 2021-08-26 00:06 | Outpatient (CLI) | payer BC, SELFPAY ==
[2021-08-26 18:14] LABS: SARS-CoV-2 RNA PCR Negative
== END ==
PROVIDERS: PCP Internal Medicine; Visit Provider Orthopaedic Surgery
DX: Z01.812 Encounter for preprocedural laboratory examination (principal); Z20.822 Contact with and (suspected) exposure to COVID-19
CPT/HCPCS: C9803; U0003; U0005

== ENCOUNTER 2021-08-29 00:07 | Day surgery (SDC) | payer BC, SELFPAY ==
--- NOTE | 2021-08-16 11:02 | PC.NURSE ---
Report to the Outpatient Waiting Room, entrance under the green pavilion located off [facility], at time ____6:00AM___ on date __08/29/21 . OR Time: __7:30AM . - You and your visitor will be asked a series of questions to screen for COVID 19 for your protection. - A mask is required within the hospital. - Only one visitor is allowed at this time. Patient visitors will be guided where to wait when not with patient. Preoperative COVID Testing Requirements: No COVID Test needed if: (proof is required; if not received patient will have Rapid Test prior to entry) - Patient has received COVID Vaccine at least 14 days prior to procedure date or - Patient has positive COVID test result within last 90 days of surgery date. COVID Test needed if above criteria is not met If not COVID vaccinated a COVID test must be conducted within 72 hours of surgery and patient is asked to isolate self from time of testing until procedure. You will go to the [facility] for your COVID testing. The [facility] is located at the corner of [address] [facility]. COVID TESTING 08/26/21 @ 9:00AM You will only be called if COVID results are positive and your surgeon may reschedule your elective surgery date. Patients may have clear liquids (water, carbonated beverages, clear teas, apple juice) until 3 hours prior to surgery with a maximum of 20 ounces. - No food from midnight until time of surgery - Infants may have breast milk until 4 hours before surgery, formula 6 hours prior to surgery. - Children will be allowed to drink immediately following surgery. If applicable, please bring a bottle or sippy cup to assist with drinking. Juice, water, soda, and popsicles are readily available. For infants on formula, please bring formula the day of surgery. Pacifiers are allowed. Take the following medications with a SIP of water the morning of surgery: __ALPRAZOLAM NEEDED, CITALOPRAM Medications to discontinue per physician ____ASPIRIN & NSAIDS(MELOXICAM) 7 DAYS PRE-OP, ALL VITAMINS/SUPPLEMENTS 3 DAYS PRE-OP Date to take last dose 08/22/21 Please no make-up, nail malay, hairspray, perfume, deodorant, or body powder the day of surgery. No jewelry (including any body piercings) or valuables the day of surgery, leave them at home. Please take a shower or bath the night before, or the morning of, surgery with an antibacterial soap. Wear comfortable, loose fitting clothing. Children are encouraged to wear pajamas. - Jewelry must be removed prior to entering the operating room. Rings and piercings that are not removed may be cut off. - The hospital will not accept responsibility for valuables. - Please leave all valuables, including medications, at home the day of surgery. If you are going home after surgery, a licensed rail car driver must drive you home. - NO public transportation without another adult. - We recommend that an adult stay with you for 24 hours following discharge. - We also recommend that you do not drive, make important decision, drink alcoholic beverages, or take any drugs that were not prescribed by your health care provider for at least 24 hours after your discharge time. For Pediatric surgeries, we recommend two adults accompany the child home (only one inside the building at this time). Follow any additional instructions given to you from your surgeon. Telephone instructions given to ____PATIENT and asked if any additional questions and then verbalized understanding. Patient advised to call surgeon office or pre surgery nurse liaison [phone] if any additional questions.
--- NOTE | 2021-08-28 10:01 | WPDANESEPPF ---
Anes - Initial Pre Proc Eval Procedure: Operation Date: 08/29/21 07:30 Proposed Procedures p Left Total Hip Arthroplasty - Torres Moore MD Date/Time: 08/28/21 10:01 Surgeon: Torres Moore MD Pre Op Diagnosis: Prim OA Left Hip Patient Data Age: 61 Gender: F Height: 1.6 m Weight: 77 kg Allergies Allergy/AdvReac Type Severity Reaction Status Date / Time Sulfa (Sulfonamide Allergy UNKOWN-SISTER Verified 08/29/21 06:19 Antibiotics) HAD SEVERE N/V WTH SULFA Home Medications Medication Instructions Recorded Confirmed Type biotin 5,000 mcg-silicon dioxide 1 tablet PO DAILY 08/14/19 08/29/21 History 10 ef-N-ccsbnxjy 50 mg tablet ER acyclovir 400 mg PO DAILY PRN 08/22/20 08/29/21 History aspirin 81 mg PO DAILY 08/22/20 08/29/21 History esomeprazole magnesium 20 mg 20 mg PO DAILY 05/09/21 08/29/21 History capsule,delayed release alprazolam 0.5 mg tablet 0.5 mg PO BID PRN #90 tablet 05/10/21 08/29/21 Rx cyanocobalamin (vitamin B-12) 1,000 mcg PO QAM 06/19/21 08/29/21 History levocetirizine [Xyzal] 5 mg PO DAILY 06/19/21 08/29/21 History montelukast [Singulair] 10 mg PO HS 06/19/21 08/29/21 History multivitamin [Multi-Vitamin] 1 tablet PO DAILY 06/19/21 08/29/21 History ergocalciferol (vitamin D2) 1 tablet PO DAILY 07/11/21 08/29/21 History oxycodone-acetaminophen 1 - 2 tablet PO Q4-6H PRN #30 07/12/21 08/29/21 Rx tablet MDD 8 hydrochlorothiazide 12.5 mg tablet 25 mg PO QAM #180 tablet 07/18/21 08/29/21 Rx lisinopril 20 mg tablet 40 mg PO QAM #180 tablet 07/18/21 08/29/21 Rx atorvastatin 20 mg tablet 20 mg PO DAILY #90 tablet 07/25/21 08/29/21 Rx meloxicam 15 mg tablet 15 mg PO DAILY #90 tablet 08/08/21 08/29/21 Rx citalopram [Celexa] 40 mg PO QAM 08/16/21 08/29/21 History Patient hx anesthesia problems: none Family hx anesthesia problems: none Results Review: All pre-operative results and documents have been reviewed as part of the pre-operative evaluation. [facility] Past Medical History Medical History (Updated 08/28/21 @ 10:02 by Ilir Chaves MD) Anxiety Carpal tunnel syndrome (~2011) Depression Essential (primary) hypertension GERD (gastroesophageal reflux disease) History of spinal stenosis (~2011) Hypercholesterolemia Obesity PONV (postoperative nausea and vomiting) Surgical History Surgical History History of total right hip arthroplasty (~07/11/21) Family History Family History Grandparent Breast cancer Grandparent Ovarian cancer Mother Breast cancer Arthritis Father Arthritis Social History Social History Smoking status: Never smoker Second hand tobacco smoke exposure: No Alcohol intake: current Drinks per week: 1 Alcohol use details: STATES MAYBE 2-3 DRINKS/MONTH Substance use: never Substance use type: does not use Living arrangements: with roommate(s) Additional living arrangements comments: ROOMMATE Spiritual care concerns: No Anes - Eval Final PreProcedure Day of Procedure 08/28/21 10:01 Patient weight: obese Heart: regular rate and rhythm Lungs: clear to auscultation and normal air movement Airway: Mallampati scale class II Neurological: alert and oriented Last oral intake: >/= 8 hours ASA classification: III Emergent: no Anesthetic plan: proceed Anesthesia type and monitoring: general ETT Results Review: All pre-operative results and documents have been reviewed as part of the pre-operative evaluation. Informed Consent: The patient's anesthetic plan and its attendant risks and benefits were discussed with the patient/family/POA. Questions were solicited and answers provided to the satisfaction of the patient/family/POA.
[2021-08-29] VITALS (16 sets, daily range): BP systolic 118–158; BP diastolic 69–97; PULSE 66–80; RESP 12–20; TEMP 36.3–37; O2SAT 88–99
--- NOTE | ~2021-08-29 | XR_ITS ---
EXAMINATION: XR hip LT min 2V DATE: 08/29/2021 10:43 INDICATION: Postoperative evaluation following left total hip arthroplasty TECHNIQUE: Anteroposterior and lateral views of the left hip were obtained. COMPARISON: 08/02/2021 FINDINGS: Interval placement of a left total hip arthroplasty which appears well seated in near anatomic alignm ent. Small amount of expected soft tissue gas in the postoperative bed. No fractures identified. Roberto meza visualized prior right total hip arthroplasty. IMPRESSION: 1. Left total hip arthroplasty, negative for postoperative purposes. Reviewed, dictated and finalized at location A. MOTIVE CENTER MANAGER
[2021-08-29] MEDS: ACETAMINOPHEN 500 MG TABLET 1000 MG PO (06:30)
[2021-08-29] MEDS: LACTATED RINGERS 1,000 ML 30 ML IV CONT ×2 (07:00→10:23)
--- NOTE | 2021-08-29 07:18 | WPDHPUPDATE1 ---
History and Physical Update Update Date/Time: 08/29/21 07:18 Two tiny mucosal sores appear to be nearly healed without signs of infection. History and Physical has been reviewed, including an updated exam of the patient. There are NO changes in the patient's condition. Risks, benefits, and alternatives have been discussed and questions answered. Patient agrees to proceed with procedure.
[2021-08-29] MEDS: TRANEXAMIC ACID 1,000MG/ISO100 1,000 MG/100 ML BAG 200 MG IVPB (07:40)
[2021-08-29] MEDS: ceFAZolin 2 GM/D5W 50 ML 2 GM/50 ML BAG IVPB ×3 (07:40→23:48)
--- NOTE | 2021-08-29 07:54 | SUR.PREOP ---
0650-DR. QUIÑONES INFORMED PT HAS 2 MOUTH SORES AT LEFT LOWER GUM AREA, SAW DENTIST LAST WEEK WHO IS NOT CONCERNED WITH ONE AREA BUT, WANTS PT TO SEE ORAL SURGEON FOR OTHER AREA BUT CANNOT GET IN FOR 1 WEEK. AWARE OF PT PAIN AND THAT SHE HAS BEEN TAKING HYDROCODONE FOR DISCOMFORT. STATES PROCEED WITH IV, HOLD TRANSEXAMIC ACID FOR NOW, MAY BE GIVEN IN OR IF HAVING SURGERY, AND HE WILL EVALUATE WHEN HE ARRIVES.
--- NOTE | 2021-08-29 10:10 | W.PM.PROC2 ---
Procedure Note - Detailed Date of Procedure 08/29/21 Pre-op Diagnosis Osteoarthritis, left hip. Post-op Diagnosis same Procedure Performed Left Total Hip Arthroplasty Surgeon Torres Moore MD Binding Machine Operator Laila Brown PA-C Anesthesia general Description of Procedure The patient was given preoperative antibiotics. A general anesthetic was administered. The patient was carefully placed in the lateral decubitus position on the PEG board. The shoulders and hips were carefully positioned for component and leg length positioning reference. The hip was prepped and draped in the usual sterile fashion. A longitudinal incision was created over the posterior aspect of the greater trochanter. Careful dissection was brought down through the deep fascia with electrocautery. A minimally invasive optimized posterior approach to the hip was performed. The short external rotators and capsule were taken down in an L-shaped capsulotomy. The tissue was tagged for later repair using number 2 high strength suture. The femoral neck was measured and taken in situ. The femoral head was removed. The acetabulum was carefully exposed. The inferior capsule was released. The labrum was resected. The acetabulum was sequentially reamed to the intended cup size. The cup was impacted into position with excellent press-fit. Typical anatomic landmarks, including the bony contact points as well as the inferior transverse acetabular ligament were used to confirm cup positioning with preoperative templating. Attention was turned to the femur, which was carefully exposed. The hip was reamed and then broached sequentially. Excellent press-fit was obtained with the broach. The hip was trialed. Measurements were utilized, including the lesser trochanter as well as the center of the femoral head and the tip of the trochanter, and excellent assessment of the offset and leg lengths were confirmed. Trialing was 1st performed with the trial 10 degree acetabular liner. Due to significant anatomic femoral anteversion, there appeared to be risk of impingement in extension and external rotation. The neutral acetabular liner was thus placed. The real femoral component was impacted into position. Trialing confirmed appropriate leg length and offset with soft tissue balancing as well apparent feel of the leg, both at the knee and the heel. Soft tissues were assessed using the the iliotibial band. Reduction of the posterior capsule and external rotators were also used as a secondary assessment. Anatomic reduction of the posterior soft tissues was easily accomplished. The hip was copiously irrigated with pulsatile lavage antibiotic solution periodically throughout the procedure. The real components were then assembled and reduced. The hip was stable throughout typical maneuvers, including extension, external rotation to 70 degrees, the position of sleep as well as flexion to 90 degrees with internal rotation to 45 degrees. The shake test confirmed stability without impingement. The short external rotators and capsule were repaired back to the posterior trochanter through drill holes. The deep fascia was repaired with running number 2 Quill suture, followed by 0 Stratafix suture and 2-0 Stratafix suture in the dermis. Steri-Strips were placed on the skin, followed by a sterile silver occlusive dressing. There were no complications. Meticulous hemostasis was maintained with the AquaMantys device. The patient was brought to the recovery room in stable condition. There were no complications. Physician assistant controller, Laila Brown PA-C, required for surgery; including patient positioning, draping, tissue retraction, maintaining instrument position, hip dislocation adn relocation, wound closure, and dressing placement. Implants The Accolade II hip stem, 127 degree size 4 , was utilized with excellent press-fit. The 48 mm Trident II acetabular component was impacted with excellent press-fit stabil
[2021-08-29] MEDS: fentaNYL CITRATE INJ (*CRX) 100 MCG/2 ML VIAL 25 MCG IV PUSH ×8 (10:43→11:23)
--- NOTE | 2021-08-29 11:02 | SUR.PHASEI ---
1030 2 VIEWS OF XRAYS TAKEN OF LT HIP IN PACU.
[2021-08-29] MEDS: oxyCODONE HCL (*CRX) 5 MG TAB IR 10 MG PO (12:49)
--- NOTE | 2021-08-29 13:17 | ADMGEN ---
This patient, Neli Duran, was admitted to 2 Medical Room 258-01. Patient/family oriented to hospital policies and general routines including ID bracelet, bed and alarms, visiting hours, pain management, procedures, bathroom and other care routines, personal items, smoking policy, room service/diet, and visiting hours. Information on how to activate the Rapid Response Team has been discussed. Patient/Family are encouraged to report perceived risks to care and to ask questions if they do not understand what they are told or what they should do.
[2021-08-29] MEDS: oxyCODONE HCL (*CRX) 5 MG TAB IR PO ×2 (16:40→20:39)
[2021-08-29] MEDS: SENNA/DOCUSATE SODIUM TABLET 2 TAB PO (16:41)
[2021-08-29] MEDS: ASPIRIN 81 MG ENTERIC TABLET PO (16:41)
[2021-08-29] MEDS: MONTELUKAST SODIUM 10 MG TABLET PO (20:36)
[2021-08-29] MEDS: LORATADINE 10 MG TABLET PO (20:36)
[2021-08-30] MEDS: oxyCODONE HCL (*CRX) 5 MG TAB IR PO (00:23)
[2021-08-30 04:03] VITALS: BP 151/76; PULSE 56; RESP 18; TEMP 36.7; O2SAT 98
[2021-08-30] MEDS: oxyCODONE HCL (*CRX) 5 MG TAB IR 10 MG PO ×2 (05:43→10:48)
[2021-08-30 05:45] LABS: Eosinophils Percent Auto 0.1 % (0-4.4); Hematocrit 34.4 % (37.0-47.0); Immature Granulocyte Absolute 0.03 K/mm3 (0.00-0.031); Immature Granulocyte Percent A 0.4 % (0-0.5); Lymphocytes Absolute Auto 1.19 K/mm3 (0.9-3.2); Mean Corpuscular HGB Conc 34.9 g/dl (32-36); Mean Corpuscular Hemoglobin 34.7 pg (26-34); Mean Corpuscular Volume 99.4 fl (80-100); Mean Platelet Volume 8.8 fl (7.4-10.4); Monocytes Absolute Auto 0.7 K/mm3 (0.1-0.6); Monocytes Percent Auto 9.3 % (2.6-8.5); Neutrophils Percent Auto 75.2 % (45.5-73.1); Platelet Count Result 306 k/mm3 (150-375); Red Blood Count 3.46 M/mm3 (4.2-5.4); Red Cell Distribution Width 11.9 % (11.5-14.5); White Blood Count 7.9 K/mm3 (4.5-10.0)
--- NOTE | 2021-08-30 08:02 | P.PNAN_ITS ---
Anes - Prog Note Post-Op Date/Time: 08/30/21 08:02 Cardiovascular status: normal Respiratory status: normal Airway patency: baseline Mental status: baseline Post-Op hydration status: normal Vital Signs: Last Vital Signs Temp 36.7 C 08/30/21 04:03 Pulse 56 L 08/30/21 04:03 Resp 18 08/30/21 04:03 BP 151/76 H 08/30/21 04:03 Pulse Ox 98 08/30/21 04:03 Pain Score (VAS): 3 I/O: Intake & Output 08/29/21 08/30/21 08/30/21 23:59 07:59 15:59 Intake Total 1240 700 Balance 1240 700 Laboratory Tests 08/30/21 05:31 08/30/21 05:31 WBC 7.9 RBC 3.46 L Hgb 12.0 Hct 34.4 L MCV 99.4 MCH 34.7 H MCHC 34.9 RDW 11.9 Plt Count 306 MPV 8.8 Immature Gran % (Auto) 0.4 Neut % (Auto) 75.2 H Lymph % (Auto) 15.0 L [place] % (Auto) 9.3 H Eos % (Auto) 0.1 Baso % (Auto) 0.0 L Lymph # (Auto) 1.19 [place] # (Auto) 0.7 H Eos # (Auto) 0.0 Baso # (Auto) 0.0 Abs Immat Gran (auto) 0.03 Absolute Neuts (auto) 6.0 Absolute Nucleated RBC 0.0 Nucleated RBC % 0.0 Post-procedural complaints: none Patient Feedback: Patient satisfied with anesthetic care.
--- NOTE | 2021-08-30 08:27 | PM.DS ---
DS: Admitting Diagnosis Discharge Date 08/30/21 Admitting Diagnosis OA Left hip DS: Discharge Diagnosis Discharge Diagnosis (1) Status post total hip replacement, right: Code(s): Z96.641 - Presence of right artificial hip joint Status: Acute Assessment and Plan: Postop day 1: Total hip arthroplasty Left. Patient tolerated procedure well. No complications. Pain manageable with pain medication. No numbness or tingling. No N/V. We had a lengthy discussion regarding postoperative wound care, limitations, expectations, and exercises. Patient shows good understanding. Patient has had initial physical therapy and is tolerating it well. DVT prophylaxis: 81 mg baby aspirin b.i.d. for 14 days. Short frequent walks. Pain medication: Percocet. Meloxicam. Patient has followup appointment with Dr. Moore in 3 weeks DS: Summary Hospital Course Reason for hospitalization: Total hip arthroplasty Hospital Course: Patient tolerated procedure well. Has had initial PT/OT. Status at Discharge Functional status at discharge: uses cane/walker Overall status at discharge: patient is progressing back to baseline Time Spent with Patient Time attestation: Total time spent providing and/or coordinating discharge services: Exam Narrative: Overweight 61 y/o female. Resting comfortably in bed. Wearing compression socks bilaterally. Dressing dry and intact with no drainage. Moderate swelling. Mild ecchymosis. No erythema. Range of motion limited due to pain. Calf nontender. Thigh nontender. Neurologic status intact. No varicosities. Distal pulses palpable. DS: Data Data Completed and Pending Labs on day of discharge: Labs from last 24 hours 08/30/21 05:31 WBC 7.9 RBC 3.46 L Hgb 12.0 Hct 34.4 L MCV 99.4 MCH 34.7 H MCHC 34.9 RDW 11.9 Plt Count 306 MPV 8.8 Immature Gran % (Auto) 0.4 Neut % (Auto) 75.2 H Lymph % (Auto) 15.0 L [place] % (Auto) 9.3 H Eos % (Auto) 0.1 Baso % (Auto) 0.0 L Lymph # (Auto) 1.19 [place] # (Auto) 0.7 H Eos # (Auto) 0.0 Baso # (Auto) 0.0 Abs Immat Gran (auto) 0.03 Absolute Neuts (auto) 6.0 Absolute Nucleated RBC 0.0 Nucleated RBC % 0.0 Discharge Plan Discharge Patient Disposition: Home, Self-Care Discharge Instructions: See instruction sheet Patient Instructions: Pain Management (DC), Precautions after Total Joint Replacement Surgery (DC), Total Hip Replacement (DC) Follow-up/Referrals: Laila Brown PA [Physician Wafer Polishing Worker] - Discharge Medications: New aspirin 81 mg tablet,delayed release (DR/EC) 81 mg PO BID 14 Days Qty: 28 RF: 0 oxycodone-acetaminophen 5-325 mg tablet 1 - 2 tablet PO Q4-6H MDD 6 PRN (Reason: pain) Qty: 30 RF: 0 Continued biotin-silicon [id number]-[id number] 5,000 mcg -10 mg-50 mg tablet extended release 1 tablet PO DAILY RF: 0 esomeprazole magnesium [Nexium] 20 mg capsule,delayed release(DR/EC) 20 mg PO DAILY RF: 0 acyclovir 400 mg tablet 400 mg PO DAILY PRN (Reason: FEVER BLISTER) RF: 0 multivitamin Tablet 1 tablet PO DAILY RF: 0 levocetirizine [Xyzal] 5 mg Tablet 5 mg PO DAILY RF: 0 cyanocobalamin (vitamin B-12) 1,000 mcg Capsule 1,000 mcg PO QAM RF: 0 montelukast [Singulair] 10 mg tablet 10 mg PO HS RF: 0 ergocalciferol (vitamin D2) 1,000 unit Tablet 1 tablet PO DAILY RF: 0 oxycodone-acetaminophen 5-325 mg tablet 1 - 2 tablet PO Q4-6H MDD 8 PRN (Reason: pain) Qty: 30 RF: 0 citalopram [Celexa] 40 mg tablet 40 mg PO QAM RF: 0 alprazolam [Xanax] 0.5 mg tablet 0.5 mg PO BID PRN (Reason: anxiety) Qty: 90 RF: 0 lisinopril 20 mg tablet 40 mg PO QAM Qty: 180 RF: 1 hydrochlorothiazide 12.5 mg tablet 25 mg PO QAM Qty: 180 RF: 1 atorvastatin 20 mg tablet 20 mg PO DAILY Qty: 90 RF: 1 meloxicam [Mobic] 15 mg tablet 15 mg PO DAILY Qty: 90 RF: 1 Held aspirin 81 mg Tablet 81 mg PO DAILY RF: 0 Hold
[2021-08-30] MEDS: hydroCHLOROthiazide 12.5 MG CAPSULE 25 MG PO (08:42)
[2021-08-30] MEDS: ASPIRIN 81 MG ENTERIC TABLET PO (08:43)
[2021-08-30] MEDS: polyethylene glycoL 3350 17 GM POWD.PACK PO (08:43)
[2021-08-30] MEDS: ceFAZolin 2 GM/D5W 50 ML 2 GM/50 ML BAG IVPB (08:43)
[2021-08-30] MEDS: CYCLOBENZAPRINE HCL 10 MG TABLET PO (08:43)
[2021-08-30] MEDS: lisinopriL 20 MG TABLET 40 MG PO (08:43)
[2021-08-30] MEDS: SENNA/DOCUSATE SODIUM TABLET 2 TAB PO (08:43)
[2021-08-30] MEDS: CITALOPRAM HYDROBROMIDE 10 MG TABLET 40 MG PO (08:43)
[2021-08-30] MEDS: PANTOPRAZOLE 40 MG TABLET PO (08:43)
[2021-08-30] MEDS: MELOXICAM 7.5 MG TABLET 15 MG PO (08:43)
[2021-08-30] MEDS: ATORVASTATIN 20 MG TABLET PO (08:43)
--- NOTE | 2021-08-30 09:57 | PCOTNOTE ---
On 08/30/21, the student, Conchita Hazel, provided care and completed [employer] [facility] documentation on this patient. I have reviewed the student's documentation and agree with the findings.
[2021-08-30 10:08] VITALS: BP 133/87; PULSE 68; RESP 18; TEMP 36.7; O2SAT 94
== END 2021-08-30 11:00 | disposition home or self-care (01) ==
LOC: ANHSURGERY 06:07 → ANH2MED 11:40
PROVIDERS: Physician Assistant Surgical; PCP Internal Medicine; Visit Provider Orthopaedic Surgery
PROC: (CPT 27130; principal; 2021-08-29 07:30)
DX: M16.12 Unilateral primary osteoarthritis, left hip (principal); F41.8 Other specified anxiety disorders; I10 Essential (primary) hypertension; K21.9 Gastro-esophageal reflux disease without esophagitis; E78.00 Pure hypercholesterolemia, unspecified; M48.00 Spinal stenosis, site unspecified; Z79.82 Long term (current) use of aspirin; E66.9 Obesity, unspecified; Z68.30 Body mass index [BMI] 30.0-30.9, adult
CPT/HCPCS: 27130; 36415; 73502; 85025; 97110; 97116; 97161; 97165; 97530; 97535; A9270; C1776; J0131; J0171; J0330; J0690; J1100; J1170; J1885; J2250; J2270; J2405; J2704; J2710; J2795; J3010; J7120

== ENCOUNTER → 2022-03-20 10:20 | Outpatient (CLI) | payer BC, SELFPAY ==
--- NOTE | ~2022-03-20 | MM_ITS ---
EXAMINATION: MM screening [facility] BI w lis HISTORY: Screening TECHNIQUE: Craniocaudal and mediolateral oblique 3-D tomosynthesis images were obtained and synthetic 2-D images were generated. CAD analysis was submitted and interpreted. COMPARISON: Comparison to multiple prior studies sequentially, with oldest reviewed study dated 05/2016. BREAST PARENCHYMAL COMPOSITION: There are scattered areas of fibroglandular density. FINDINGS: There is no evidence of suspicious mass, calcification, or architectural distortion to sugg est malignancy in either breast. There has been no suspicious interval change. IMPRESSION: 1. No mammographic evidence of malignancy. 2. Recommend routine screening mammography in one year. BI-RADS Category 1: Negative Reviewed, dictated and finalized at location A.
== END ==
PROVIDERS: PCP Internal Medicine; Visit Provider Obstetrics & Gynecology
DX: Z12.31 Encounter for screening mammogram for malignant neoplasm of breast (principal)
CPT/HCPCS: 77063; 77067

== ENCOUNTER 2022-04-18 10:25 | Outpatient (CLI) | payer BC, SELFPAY ==
--- NOTE | ~2022-04-18 | XR_ITS ---
XR shoulder RT min 2V DATE: 04/18/2022 10:43 INDICATION: Right shoulder pain, arthritis TECHNIQUE: 4 views COMPARISON: 07/21/2019 right shoulder 07/18/2009 right shoulder FINDINGS: There is joint space narrowing at the right acromioclavicular joint. There is prominent particular spurring of the humeral head consistent with glenohumeral osteoarthriti s. No fracture or dislocation, periosteal reaction or bone destruction or abnormal soft tissue calcifica tion. IMPRESSION: Glenohumeral osteoarthritis and mild degenerative change at the acromioclavicular joint Reviewed, dictated and finalized at location A. IMPRESSION: Glenohumeral osteoarthritis and mild degenerative change at the acr omioclavicular joint
--- NOTE | ~2022-04-18 | XR_ITS ---
XR shoulder LT min 2V DATE: 04/18/2022 10:42 INDICATION: Left shoulder pain TECHNIQUE: left shoulder MRI COMPARISON: None FINDINGS: There is a space narrowing and spurring at the acromioclavicular joint. There is prominent periarticular spurring of the left humeral head consistent with left glenohumeral osteoarthritis. No fracture, dislocation, periosteal reaction or bone destruction or abnormal soft tissue calcificati on of the left shoulder. IMPRESSION: Left glenohumeral osteophyte is Degenerative change of the left acromioclavicular joint Reviewed, dictated and finalized at location A.
== END 2022-04-18 10:26 | disposition home or self-care (01) ==
LOC: ANHIMG 10:26
PROVIDERS: PCP Internal Medicine; Visit Provider Physician Assistant Surgical
DX: M19.012 Primary osteoarthritis, left shoulder (principal); M19.011 Primary osteoarthritis, right shoulder
CPT/HCPCS: 73030

== ENCOUNTER 2022-08-07 12:59 | Outpatient (CLI) | payer BC, SELFPAY ==
--- NOTE | 2022-08-07 13:14 | ECG_ITS ---
Measurements Intervals [place] Rate: 71 P: 52 LA: 167 QRS: 41 QRSD: 74 T: 22 QT: 389 QTc: 424 Interpretive Statements SINUS RHYTHM POSSIBLE LEFT ATRIAL ENLARGEMENT BORDERLINE ST-T WAVE ABNORMALITY- INFERIOR LEADS BASELINE ARTIFACT- II, III, AVF BORDERLINE ECG COMPARED TO ECG 06/02/2021 13:22:03 NO SIGNIFICANT CHANGES Electronically Signed On 08-07-2022 13:32:18 CDT by Kar Zafar D.O.
[2022-08-07 13:36] LABS: Anion Gap 12 mmol/L (8-16); Blood Urea Nitrogen 23 mg/dL (7-17); Calcium 9.3 mg/dL (8.4-10.2); Carbon Dioxide 25 mmol/L (22-30); Chloride 98 mmol/L (98-107); Estimated Glomerular Filt Rate > 60; Glucose 112 mg/dL (65-110); Sodium 135 mmol/L (137-145)
== END 2022-08-07 13:00 | disposition home or self-care (01) ==
PROVIDERS: Anesthesiology; PCP Internal Medicine; Visit Provider Podiatrist Foot & Ankle Surgery
DX: I10 Essential (primary) hypertension (principal); Z01.818 Encounter for other preprocedural examination; T50.2X5A Adverse effect of carbonic-anhydrase inhibitors, benzothiadiazides and other diuretics, initial encounter; R94.31 Abnormal electrocardiogram [ECG] [EKG]
CPT/HCPCS: 36415; 80048; 93005

== ENCOUNTER 2022-08-10 01:09 | Day surgery (SDC) | payer BC, SELFPAY ==
[2022-08-06 14:39] VITALS: BMI 28.5
--- NOTE | 2022-08-06 14:45 | PC.NURSE ---
Report to the Outpatient Waiting Room, entrance under the green pavilion located off [facility], at time 09:00AM on date 08/10/22. Planned Procedure Time: 11:00AM. Time changes happen often and if your time is changed the preop area will call you the afternoon before. - You and your visitor will be asked to self-screen and do not enter if you have any COVID symptoms. - We encourage only one visitor and NO visitors under age 16 are allowed at this time. Your visitor will receive communication by the phone number that is given day of service. - The patient visitor is requested to social distance or may leave the building when not with patient due to restrictions. - A mask is required within the hospital. Patients may have clear liquids (water, carbonated beverages, clear teas, apple juice) until 3 hours prior to surgery (8:00AM) with a maximum of 20 ounces. - No food from midnight until time of surgery Take the following medications with a SIP of water the morning of surgery: XANAX NEEDED, CHECK WITH OFFICE FOR ASPIRIN Medications to discontinue per physician: VITAMINS AND SUPPLEMENTS Date to take last dose: TODAY Please no make-up, nail malawian, hairspray, perfume, deodorant, or body powder the day of surgery. No jewelry (including any body piercings) or valuables the day of surgery, leave them at home. Please take a shower or bath the night before, or the morning of, surgery with an antibacterial soap. Wear comfortable, loose fitting clothing. - Jewelry must be removed prior to entering the operating room. Rings and piercings that are not removed may be cut off. - The hospital will not accept responsibility for valuables. - Please leave all valuables, including medications, at home the day of surgery. If you are going home after surgery, a licensed local intermodal truck driver must drive you home. - NO public transportation without another adult. - We recommend that an adult stay with you for 24 hours following discharge. - We also recommend that you do not drive, make important decision, drink alcoholic beverages, or take any drugs that were not prescribed by your health care provider for at least 24 hours after your discharge time. Follow any additional instructions given to you from your surgeon. If you or anyone in your household have experienced Covid symptoms in the past week, please notify your surgeon or the nurse liaison at the phone number below for possible testing. Telephone instructions given to PATIENT and asked if any additional questions and then verbalized understanding. Patient advised to call surgeon office or pre surgery nurse liaison [phone] if any additional questions.
[2022-08-10] VITALS (7 sets, daily range): BP systolic 120–161; BP diastolic 69–87; PULSE 55–59; RESP 12–17; TEMP 36.5; O2SAT 95–100
--- NOTE | ~2022-08-10 | XR_ITS ---
EXAMINATION: XR surgery orthopedic DATE: 08/10/2022 12:24 INDICATION: Right foot arthrodesis TECHNIQUE: 2 fluoroscopic images of the right forefoot were obtained during procedure performed by Dr Christy Irene. Radiologist was not present for the imaging or procedure. The amount of fluoroscopy time used during this procedure was 0.1 minutes. COMPARISON: None. FINDINGS: First metatarsophalangeal arthrodesis with dorsal plate and screw fixation. Alignment is essentially anatomic. No fractures. Profiled joint spaces are relatively preserved. Soft tissue swelling about th e first metatarsophalangeal joint. IMPRESSION: 1. Fluoroscopy utilized during first metatarsophalangeal arthrodesis. See procedure note for further detail. Reviewed, dictated and finalized at location B. IMPRESSION: 1. Fluoroscopy utilized during first metatarsophalangeal arthrodesis. See proce dure note for further detail.
--- NOTE | 2022-08-10 07:11 | WPDHPUPDATE1 ---
History and Physical Update Update Date/Time: 08/10/22 07:11 History and Physical has been reviewed, including an updated exam of the patient. There are NO changes in the patient's condition. Risks, benefits, and alternatives have been discussed and questions answered. Patient agrees to proceed with procedure.
[2022-08-10] MEDS: LACTATED RINGERS 1,000 ML 30 ML IV CONT (09:30)
--- NOTE | 2022-08-10 09:58 | WPDANESEPPF ---
Anes - Initial Pre Proc Eval Procedure: Operation Date: 08/10/22 11:00 Proposed Procedures p Arthrodesis First Metatarsal Phalangeal Joint Right Foot - Kareem Irene JR, MD Date/Time: 08/10/22 09:58 Surgeon: Kareem Irene JR, MD Pre Op Diagnosis: arthritic bunion right foot Patient Data Age: 62 Gender: F Height: 1.6 m Weight: 73 kg Allergies Allergy/AdvReac Type Severity Reaction Status Date / Time Sulfa (Sulfonamide Allergy Unknown Verified 08/06/22 14:30 Antibiotics) Home Medications Medication Instructions Recorded Confirmed Type biotin 5,000 mcg-silicon dioxide 1 tablet PO DAILY 08/14/19 08/06/22 History 10 [id number]-E-rmblxuoh 50 mg tablet ER esomeprazole magnesium 20 mg 20 mg PO DAILY 05/09/21 08/06/22 History capsule,delayed release (Nexium) multivitamin 1 tablet PO DAILY 06/19/21 08/06/22 History ergocalciferol (vitamin D2) 1,000 1 tablet PO DAILY 07/11/21 08/06/22 History unit tablet aspirin 81 mg tablet,delayed 81 mg PO BID 14 days #28 tabs 08/30/21 08/06/22 Rx release meloxicam 15 mg tablet 15 mg PO DAILY #90 tabs 03/26/22 08/06/22 Rx montelukast 10 mg tablet 10 mg PO HS #90 tabs 04/02/22 08/06/22 Rx (Singulair) alprazolam 0.5 mg tablet (Xanax) 0.5 mg PO BID PRN anxiety #90 tabs 04/24/22 08/06/22 Rx hydrochlorothiazide 12.5 mg tablet 25 mg PO DAILY 07/11/22 08/06/22 History lisinopril 20 mg tablet 40 mg PO DAILY 07/11/22 08/06/22 History atorvastatin 20 mg tablet 20 mg PO DAILY #90 tabs 07/18/22 08/06/22 Rx citalopram 40 mg tablet (Celexa) 40 mg PO QAM #90 tabs 07/18/22 08/06/22 Rx acyclovir 400 mg tablet 400 mg PO DAILY FEVER BLISTER 90 08/06/22 08/06/22 Rx days #90 tabs mecobalamin (vitamin B12) 1,000 1,000 mcg PO DAILY 08/06/22 08/06/22 History mcg chewable tablet Patient hx anesthesia problems: post op nausea/vomiting Family hx anesthesia problems: none Results Review: All pre-operative results and documents have been reviewed as part of the pre-operative evaluation. [facility] Past Medical History Medical History Anxiety Arthritis Carpal tunnel syndrome (~2011) Chronic pain syndrome Depression Essential (primary) hypertension GERD (gastroesophageal reflux disease) History of spinal stenosis (~2011) Hypercholesterolemia Obesity PONV (postoperative nausea and vomiting) Surgical History Surgical History History of total right hip arthroplasty (~07/11/21) Family History Family History Grandparent Breast cancer Grandparent Ovarian cancer Mother Breast cancer Arthritis Father Arthritis Social History Social History Smoking status: Never smoker Second hand tobacco smoke exposure: No Alcohol intake: never Drinks per week: 1 Alcohol use details: STATES MAYBE 2-3 DRINKS/MONTH Substance use: never Substance use type: does not use Living arrangements: with roommate(s) Additional living arrangements comments: ROOMMATE Spiritual care concerns: No Anes - Eval Final PreProcedure Day of Procedure 08/10/22 09:58 Patient weight: overweight Heart: regular rate and rhythm Lungs: clear to auscultation Airway: Mallampati scale class II Neurological: alert and oriented Last oral intake: >/= 8 hours ASA classification: III Emergent: no Anesthetic plan: proceed Anesthesia type and monitoring: general LMA and standard monitoring Results Review: All pre-operative results and documents have been reviewed as part of the pre-operative evaluation. Informed Consent: The patient's anesthetic plan and its attendant risks and benefits were discussed with the patient/family/POA. Questions were solicited and answers provided to the satisfaction of the patient/family/POA.
[2022-08-10] MEDS: SCOPOLAMINE 1.5 MG PATCH TRANSDERM (10:10)
--- NOTE | 2022-08-10 11:26 | WPDANESPNB ---
Anes - Peripheral Nerve Block Date/Time: 08/10/22 11:26 I have discussed with the patient/family/POA the placement of a peripheral nerve block for post-operative pain management, including associated risks, benefits, complications, and side effects. Alternative methods of post-operative analgesia were detailed. Questions were solicited and answers provided to the satisfaction of the patient/family/POA. Time-Out: A pre-procedural Time-Out was completed immediately before starting the procedure and confirmed: Patient Identification, Site, Procedure, Patient Position and the Availability of Requisite Equipment. Clinical Indications: Acute post-operative pain management requested by the operative surgeon. Nerve Block Insertion Note Anes-nerve block: posterior fossa sciatic right and other (Saphenous right) Patient position: supine Skin prep: chlorhexidine Needle: 22 gauge, stimulating, insulated echogenic needle. Needle length: 80 mm Technique: nerve stimulation lost at (mA) (0.21) Technique comment: mid2mg [id number] Injectate: bupivacaine 0.5% with epi 5 mcg/ml (20/10ml no epi) and dexamethasone (mg) (4) Observations: tolerated well Complications: none Procedure start time:: 1119 Procedure end time:: 1124
[2022-08-10] MEDS: ceFAZolin 2 GM/D5W 50 ML 2 GM/50 ML BAG IVPB (11:30)
--- NOTE | 2022-08-10 12:53 | W.PM.PROC2 ---
Procedure Note - Detailed Date of Procedure 08/10/22 Pre-op Diagnosis Arthritic bunion right foot Post-op Diagnosis Same Procedure Performed Arthrodesis of the first metatarsal phalangeal joint right foot Surgeon Kraeem Irene JR, MAXIME Anesthesia General and Regional (Popliteal fossa block) Indications Painful first metatarsal phalangeal joint right foot Findings Near complete loss of articular cartilage to the first metatarsal phalangeal joint Description of Procedure PROCEDURE IN DETAIL: Under mild sedation, the patient was brought into the operating room, placed on the operating table in supine position. A pneumatic ankle tourniquet was placed about the patient's ipsilateral ankle. Following general LMA, and a previous popliteal fossa block the foot and ankle was then scrubbed, prepped, and draped in the usual aseptic manner. An Esmarch bandage was then used to exsanguinate the patient's foot and the pneumatic ankle tourniquet was then inflated. Surgery began in the following manner: Attention was directed to the dorsal aspect of the 1st metatarsophalangeal joint where there was a large subcutaneous prominence noted along the dorsomedial aspect of the joint. The incision was made starting along the central shaft of the 1st metatarsal and extending just proximal to the interphalangeal joint of the hallux. The incision was continued deep down through the subcutaneous tissues using sharp and blunt dissection. All bleeders were cauterized as necessary. At this point, the dissection was continued down to the level of the periosteum and capsular structures overlying the 1st metatarsophalangeal joint. A full length periosteum and capsular incision was made just medial to the extensor hallucis longus tendon. The periosteum and capsular structures were freed from the base of the proximal phalanx as well as the distal 1st metatarsal. At this point, the 1st metatarsophalangeal joint was identified. There was almost complete loss of articular cartilage to the head of the 1st metatarsal as well as the base of the proximal phalanx. There was significant broadening and hypertrophy of the 1st metatarsophalangeal joint. Utilizing a sagittal bone saw, the hypertrophied 1st metatarsal was resected dorsally, medially, and laterally. A power bur was used to make sure that there were no rough edges and also to further debride the hypertrophic 1st metatarsal. Next, a rongeur was used to resect all hypertrophic base of the proximal phalanx. At this point, the reamer system for the nvite CrossCHECK system was used to denude the degenerative cartilage from the head of the 1st metatarsal as well as the base of the proximal phalanx. The cartilage and subchondral bone were fully debrided utilizing the reamer system until healthy bleeding bone was noted. Next, a 2-0 drill bit was used to further fenestrate the head of the 1st metatarsal as well as the base of the proximal phalanx in order to promote fusion across the 1st metatarsophalangeal joint. Next, a 0.045 inch K-wire was driven from the medial aspect of the base of the proximal phalanx into the head of the 1st metatarsal in order to serve as temporary fixation. A large steel plate was used to make sure that the hallux was in a rectus position both in the sagittal plane as well as the frontal and transverse plane. Excellent position of the hallux was noted. Next, a CrossCHECK plate was placed atop the 1st metatarsophalangeal joint held in position with Fire[place]augh wires. Utilizing standard principles and techniques, the 2 distal drill holes were drilled and two 2.7mm mm fully-threaded locking screws were driven from dorsal to plantar holding the distal aspect of the plate intact. At this point, a 3.5mm lag screw was driven from dorsal distal to proximal plantar across the 1st metatarsophalangeal joint through the plate system with excellent compression noted after careful removal of the olive wir
[2022-08-10] MEDS: fentaNYL CITRATE INJ (*CRX) 100 MCG/2 ML VIAL 25 MCG IV PUSH (13:06)
== END 2022-08-10 14:30 | disposition home or self-care (01) ==
PROVIDERS: PCP Internal Medicine; Visit Provider Podiatrist Foot & Ankle Surgery
PROC: (CPT 28750; principal; 2022-08-10 11:00)
DX: M21.611 Bunion of right foot (principal); G89.18 Other acute postprocedural pain; I10 Essential (primary) hypertension; E78.00 Pure hypercholesterolemia, unspecified; K21.9 Gastro-esophageal reflux disease without esophagitis; F41.9 Anxiety disorder, unspecified; F32.A Depression, unspecified; E66.9 Obesity, unspecified; Z79.82 Long term (current) use of aspirin
CPT/HCPCS: 28750; 64450; 64445; 99199; A9270; C1713; J0690; J1100; J2250; J2405; J2704; J3010; J7120

== ENCOUNTER 2022-12-01 12:38 | Emergency (ER) | payer BC, SELFPAY ==
[2022-12-01] VITALS (11 sets, daily range): BP systolic 140–177; BP diastolic 77–93; PULSE 58–85; RESP 17–20; TEMP 36.8–37; O2SAT 95–100
--- NOTE | ~2022-12-01 | XR_ITS ---
XR hip RT 1V DATE: 12/01/2022 13:04 INDICATION: XR hip RT 1V DATE: 12/01/2022 13:04 INDICATION: Right hip pain after bending TECHNIQUE: Single cross table lateral view of right hip COMPARISON: 07/11/2022 AP pelvis FINDINGS: There is superior dislocation of the right total hip arthroplasty. IMPRESSION: Superior dislocation at right total hip arthroplasty Reviewed, dictated and finalized at Location [facility]. Reviewed, dictated and finalized at location A. RUCTOR NURSE
--- NOTE | ~2022-12-01 | XR_ITS ---
EXAM: XR hip RT 2V w AP pelvis DATE: 12/01/2022 14:41 HISTORY: POST REDUCTION . COMPARISON: Same date at 1:00 PM. FINDINGS/IMPRESSION: Successful interval reduction of the right hip without radiographic evidence of procedure related complication. Reviewed, dictated and finalized at location K. NCIAL ASSISTANCE SPECIALIST
--- NOTE | 2022-12-01 12:47 | ED.GENADULT ---
HPI - General Adult General Chief complaint: Extremity Injury, Lower Stated complaint: hip deformity Time Seen by Provider: 12/01/22 12:41 History of Present Illness HPI narrative: 62-year-old female with history of bilateral hip replacement presenting to the emergency department for evaluation of cute onset of right hip pain. Patient states she was bending over and pulling weeds when she felt a significant pop in her right hip causing pain and causing her to fall. Patient denies striking head denies loss consciousness. Patient denies any other pain or injury. Patient states the right hip was replaced in July [address] Moore Related Data Home Medications Medication Instructions Recorded Confirmed biotin 5,000 mcg-silicon dioxide 1 tablet PO DAILY 08/14/19 10/31/22 10 vr-[id number] 50 mg tablet ER esomeprazole magnesium 20 mg 20 mg PO DAILY 05/09/21 10/31/22 capsule,delayed release (Nexium) multivitamin 1 tablet PO DAILY 06/19/21 10/31/22 ergocalciferol (vitamin D2) 1,000 1 tablet PO DAILY 07/11/21 10/31/22 unit tablet mecobalamin (vitamin B12) 1,000 1,000 mcg PO DAILY 08/06/22 10/31/22 mcg chewable tablet Allergies Allergy/AdvReac Type Severity Reaction Status Date / Time Sulfa (Sulfonamide Allergy Unknown Verified 12/04/22 14:54 Antibiotics) Review of Systems Review of Systems: CONSTITUTIONAL: Denies fever, chills, or sweats. EYES: Denies visual changes, redness, or discharge. ENT: Denies rhinorrhea, congestion, sore throat, or otalgia. CARDIOVASCULAR: Denies chest pain, palpitations, or edema. RESPIRATORY: Denies cough or dyspnea. GASTROINTESTINAL: Denies abdominal pain, nausea, vomiting, or diarrhea. GENITOURINARY: Denies dysuria or hematuria. SKIN: Denies rash or itching. MUSCULOSKELETAL: See HPI NEUROLOGIC: Denies headache, numbness, or weakness. PSYCHIATRIC: Denies anxiety or depression. [facility] Past Medical History Medical History (Updated 12/04/22 @ 14:54 by Rubi Brownlee) Anxiety Arthritis Carpal tunnel syndrome (~2011) Chronic pain syndrome Depression Essential (primary) hypertension GERD (gastroesophageal reflux disease) History of spinal stenosis (~2011) Hypercholesterolemia Obesity PONV (postoperative nausea and vomiting) Surgical History Surgical History (System 12/04/22 @ 14:54 by Rubi Brownlee) History of foot surgery History of total right hip arthroplasty (~07/11/21) Family History Family History Grandparent Breast cancer Grandparent Ovarian cancer Mother Breast cancer Arthritis Father Arthritis Social History Social History (System 12/04/22 @ 14:54 by Rubi Brownlee) Smoking status: Never smoker Second hand tobacco smoke exposure: No Alcohol intake: never Drinks per week: 1 Alcohol use details: STATES MAYBE 2-3 DRINKS/MONTH Substance use: never Substance use type: does not use Lack of Transportation: No Lack of Food: Never True Current Housing: I Have Housing Concerned About Future Housing: No Difficulty Paying Gas/Electric Bills: No Difficulty Paying for Meds: No Currently Unemployed: No Education: High School Diploma/GED Difficulty w/ Childcare or Family Care: No Living arrangements: with roommate(s) Additional living arrangements comments: ROOMMATE Spiritual care concerns: No Exam Narrative: APPEARANCE: Well appearing, no pain, no distress, well-nourished. HEAD: normocephalic, atraumatic. EYES: PERRLA/EOMI, conjunctivae clear. NOSE: Normal no drainage NECK: Supple. No adenopathy, no masses. RESPIRATORY: Airway patent, respirations nonlabored. Clear to auscultation bilaterally, no rales, rhonchi, wheezing. CARDIOVASCULAR: Regular rate and rhythm without murmurs rubs or gallops. ABDOMINAL: Soft, nontender, nondistended, normal bowel sounds MUSCULOSKELETAL: Right hip pain with movement. Neurovascular intact. Right leg is shortened and inter
[2022-12-01 13:29] LABS: Basophils Percent Auto 0.3 % (0.2-1.2); Eosinophils Percent Auto 0.3 % (0-4.4); Hematocrit 38.2 % (37.0-47.0); Hemoglobin 13.6 g/dL (12.0-15.0); Immature Granulocyte Absolute 0.01 K/mm3 (0.00-0.031); Immature Granulocyte Percent A 0.1 % (0-0.5); Lymphocytes Absolute Auto 0.97 K/mm3 (0.9-3.2); Lymphocytes Percent Auto 14.2 % (18.3-44.2); Mean Corpuscular HGB Conc 35.6 g/dl (32-36); Mean Corpuscular Hemoglobin 35.1 pg (26-34); Mean Corpuscular Volume 98.5 fl (80-100); Mean Platelet Volume 8.7 fl (7.4-10.4); Monocytes Absolute Auto 0.6 K/mm3 (0.1-0.6); Monocytes Percent Auto 8.7 % (2.6-8.5); Neutrophils Absolute Auto 5.2 K/mm3 (1.3-6.7); Neutrophils Percent Auto 76.4 % (45.5-73.1); Platelet Count Result 347 k/mm3 (150-375); Red Blood Count 3.88 M/mm3 (4.2-5.4); Red Cell Distribution Width 12.4 % (11.5-14.5); White Blood Count 6.8 K/mm3 (4.5-10.0)
[2022-12-01 13:39] LABS: Alanine Aminotransferase 38 U/L (6-35); Albumin Level 4.8 g/dL (3.5-5.1); Alkaline Phosphatase 82 U/L (38-126); Anion Gap 9 mmol/L (8-16); Aspartate Amino Transferase 37 U/L (14-36); Bilirubin,Total 0.6 mg/dL (0.2-1.3); Blood Urea Nitrogen 24 mg/dL (7-17); Calcium 9.6 mg/dL (8.4-10.2); Carbon Dioxide 22 mmol/L (22-30); Chloride 96 mmol/L (98-107); Estimated CRCL calculation 79 ml/min; Estimated Glomerular Filt Rate > 60; Glucose 111 mg/dL (65-110); Potassium 3.9 mmol/L (3.4-5.0); Sodium 127 mmol/L (137-145)
--- NOTE | 2022-12-01 14:52 | PC.NURSE ---
Pt had moderate sedation for closed reduction on the right hip dislocation. 14:16 60mg of Propofol administered 14:18 40mg of Propofol administered 14:20 60mg of Propofol 14:25 100mg of Propofol administered
--- NOTE | 2022-12-01 19:31 | PC.NURSE ---
Total 260mg of Propofol mg given during mod sedation, 140mg wasted with Tate RODRIGES
== END 2022-12-01 15:57 | disposition home or self-care (01) ==
PROVIDERS: Emergency Provider Emergency Medicine; PCP Internal Medicine
DX: T84.020A Dislocation of internal right hip prosthesis, initial encounter (principal); I10 Essential (primary) hypertension; E78.00 Pure hypercholesterolemia, unspecified; K21.9 Gastro-esophageal reflux disease without esophagitis; M19.90 Unspecified osteoarthritis, unspecified site; F41.9 Anxiety disorder, unspecified; F32.A Depression, unspecified; E66.9 Obesity, unspecified; Z68.28 Body mass index [BMI] 28.0-28.9, adult; Z96.641 Presence of right artificial hip joint; Y79.2 Prosthetic and other implants, materials and accessory orthopedic devices associated with adverse incidents; X50.9XXA Other and unspecified overexertion or strenuous movements or postures, initial encounter; Y93.H2 Activity, gardening and landscaping
CPT/HCPCS: 27266; 36415; 73501; 73502; 80053; 85025; 99285; J2704; J7030

== ENCOUNTER 2024-01-29 08:02 | Outpatient (CLI) | payer BC, SELFPAY ==
--- NOTE | 2024-01-29 08:10 | ECG_ITS ---
SEE SCANNED COPY FOR CONFIRMED REPORT MTDD
[2024-01-29 09:22] LABS: Anion Gap 11 mmol/L (4-12); Blood Urea Nitrogen 24 mg/dL (7-17); Calcium 10.2 mg/dL (8.4-10.2); Carbon Dioxide 23 mmol/L (22-30); Chloride 99 mmol/L (98-107); Estimated Glomerular Filt Rate > 60; Glucose 86 mg/dL (65-110); Sodium 133 mmol/L (137-145)
== END 2024-01-29 08:03 | disposition home or self-care (01) ==
LOC: ANHSURGERY 08:07
PROVIDERS: Anesthesiology; PCP Internal Medicine; Visit Provider Plastic Surgery
DX: Z79.899 Other long term (current) drug therapy (principal); I10 Essential (primary) hypertension; Z01.818 Encounter for other preprocedural examination
CPT/HCPCS: 36415; 80048; 93005

== ENCOUNTER 2024-01-30 00:34 | Day surgery (SDC) | payer BC, SELFPAY ==
[2024-01-27 09:10] VITALS: BMI 26.5
--- NOTE | 2024-01-27 09:18 | PC.NURSE ---
Report to the Outpatient Waiting Room, entrance under the green pavilion located off [facility], at time 10:00 on date 01/30/24. Planned Procedure Time: 12:00. Time changes happen often and if your time is changed the preop area will call you the afternoon before. - You and your visitor will be asked to self-screen and do not enter if you have any COVID symptoms. - A mask is optional within the hospital at this time. Patients may have clear liquids (water, carbonated beverages, clear teas, apple juice) until 3 hours prior to surgery (9:00) with a maximum of 20 ounces. - No food from midnight until time of surgery Take the following medications with a SIP of water the morning of surgery: ACYCLOVIR & ALPRAZOLAM IF NEEDED, CITALOPRAM DO NOT STOP ANY OF YOUR OTHER PRESCRIPTION MEDICATIONS PRIOR TO SURGERY ?EXCEPT THE FOLLOWING Medications to discontinue per physician: VITAMINS/SUPPLEMENTS Date to take last dose: NO MORE UNTIL AFTER SURGERY FOLLOW INSTRUCTIONS FROM DR. JOHNSON REGARDING MELOXICAM Please no make-up, nail bulgarian, hairspray, perfume, deodorant, or body powder the day of surgery. No jewelry (including any body piercings) or valuables the day of surgery, leave them at home. Please take a shower or bath the night before, or the morning of, surgery with an antibacterial soap. Wear comfortable, loose fitting clothing. - Jewelry must be removed prior to entering the operating room. Rings and piercings that are not removed may be cut off. - The hospital will not accept responsibility for valuables. - Please leave all valuables, including medications, at home the day of surgery. If you are going home after surgery, a licensed wheelchair driver must drive you home. - NO public transportation without another adult if you receive anesthesia. - We recommend that an adult stay with you for 24 hours following discharge. - We also recommend that you do not drive, make important decision, drink alcoholic beverages, or take any drugs that were not prescribed by your health care provider for at least 24 hours after your discharge time. Follow any additional instructions given to you from your surgeon. If you or anyone in your household have experienced Covid symptoms in the past week, please notify your surgeon or the nurse liaison at the phone number below for possible testing. Telephone instructions given to PT - NICOLAS and asked if any additional questions and then verbalized understanding. Patient advised to call surgeon office or pre surgery nurse liaison [phone] if any additional questions.
[2024-01-30] VITALS (12 sets, daily range): BP systolic 129–156; BP diastolic 70–87; PULSE 56–80; RESP 10–20; TEMP 36.8–37; O2SAT 94–100
--- NOTE | ~2024-01-30 | XR_ITS ---
EXAMINATION: XR surgery orthopedic DATE: 01/30/2024 14:57 INDICATION: Osteoarthritis of left first carpometacarpal joint. TECHNIQUE: 2 intraoperative fluoroscopic views of left hand were obtained. I was not present. Fluoros copy exposure time was 19 seconds. COMPARISON: None. FINDINGS: There are changes of resection of trapezium. IMPRESSION: 1. Resection of trapezium. Reviewed, dictated and finalized at location E. IMPRESSION: 1. Resection of trapezium.
[2024-01-30] MEDS: ACETAMINOPHEN 500 MG TABLET 1000 MG PO (10:30)
[2024-01-30] MEDS: LACTATED RINGERS 1,000 ML 30 ML IV CONT ×2 (10:32→15:17)
--- NOTE | 2024-01-30 12:15 | WPDANESEPPF ---
Anes - Initial Pre Proc Eval Procedure: Operation Date: 01/30/24 12:00 Proposed Procedures p Left Trapezium Resection Arthroplasty with Arthrex Internal Brace - Julien Jordan MD Date/Time: 01/30/24 12:15 Surgeon: Julien Jordan MD Pre Op Diagnosis: O A Lt First Carpometacarpal Joint Patient Data Age: 63 Gender: F Height: 1.6 m Weight: 68.4 kg Last Vital Signs Temp 98.6 F 01/30/24 10:17 Pulse 56 L 01/30/24 10:17 Resp 16 01/30/24 10:17 BP 156/86 H 01/30/24 10:17 Pulse Ox 99 01/30/24 10:17 O2 Del Method Room Air 01/30/24 10:17 Allergies Allergy/AdvReac Type Severity Reaction Status Date / Time Sulfa (Sulfonamide Allergy Unknown Verified 01/30/24 10:07 Antibiotics) Home Medications Medication Instructions Recorded Confirmed Type biotin 5,000 mcg-silicon dioxide 1 tablet PO DAILY 08/14/19 01/27/24 History 10 mz-K-gbetqemf 50 mg tablet ER esomeprazole magnesium 20 mg 20 mg PO DAILY 05/09/21 01/27/24 History capsule,delayed release (Nexium) multivitamin 1 tablet PO DAILY 06/19/21 01/27/24 History ergocalciferol (vitamin D2) 1,000 1 tablet PO DAILY 07/11/21 01/27/24 History unit tablet aspirin 81 mg tablet,delayed 81 mg PO BID 14 days #28 tabs 08/30/21 01/27/24 Rx release vitamin B12 500 mcg-folic acid 400 1 tablet PO DAILY 12/17/22 01/27/24 History mcg tablet alprazolam 0.5 mg tablet (Xanax) 0.5 mg PO BID PRN anxiety #90 tabs 04/01/23 01/27/24 Rx atorvastatin 20 mg tablet 20 mg PO DAILY #90 tabs 08/10/23 01/27/24 Rx lisinopril 40 mg tablet 40 mg PO DAILY #90 tabs 10/14/23 01/27/24 Rx acyclovir 400 mg tablet 400 mg PO DAILY FEVER BLISTER 90 11/25/23 01/27/24 Rx days #90 tabs hydrochlorothiazide 12.5 mg tablet See Rx Instructions .Route 11/25/23 01/27/24 Rx .COMPLEX #180 tabs meloxicam 15 mg tablet 15 mg PO DAILY #90 tabs 11/25/23 01/27/24 Rx montelukast 10 mg tablet 10 mg PO HS #90 tabs 12/23/23 01/27/24 Rx (Singulair) citalopram 40 mg tablet (Celexa) 40 mg PO QAM #90 tabs 01/13/24 01/27/24 Rx vitamin K2 (MK-4) 100 mcg tablet 100 mcg PO DAILY 01/27/24 01/27/24 History Patient hx anesthesia problems: post op nausea/vomiting Family hx anesthesia problems: none Results Review: All pre-operative results and documents have been reviewed as part of the pre-operative evaluation. [facility] Past Medical History Medical History Anxiety Arthritis Carpal tunnel syndrome (~2011) Chronic pain syndrome Depression Essential (primary) hypertension GERD (gastroesophageal reflux disease) History of spinal stenosis (~2011) Hypercholesterolemia Obesity PONV (postoperative nausea and vomiting) Surgical History Surgical History History of foot surgery History of total left hip replacement (~08/29/21) History of total right hip arthroplasty (~07/11/21) Family History Family History Grandparent Breast cancer Grandparent Ovarian cancer Mother Breast cancer Arthritis Father Arthritis Social History Social History Smoking status: Never smoker Second hand tobacco smoke exposure: No Alcohol intake: current Drinks per week: 4 Alcohol use details: STATES MAYBE 2-3 DRINKS/MONTH Substance use: never Substance use type: does not use Lack of Transportation: No Lack of Food: Never True Current Housing: I Have Housing Concerned About Future Housing: No Difficulty Paying Gas/Electric Bills: No Difficulty Paying for Meds: No Currently Unemployed: No Education: High School Diploma/GED Difficulty w/ Childcare or Family Care: No Living arrangements: with family Additional living arrangements comments: ROOMMATE Spiritual care concerns: No Anes - Eval Final PreProcedure Day of Procedure 01/30/24 12:15 Pat
--- NOTE | 2024-01-30 12:27 | SUR.PREOP ---
Discussed delay with patient and her friend. Disappointed but understands.
[2024-01-30] MEDS: SCOPOLAMINE 1 MG PATCH 1 PATCH TRANSDERM (12:37)
--- NOTE | 2024-01-30 13:11 | WPDHPUPDATE1 ---
History and Physical Update Update Date/Time: 01/30/24 13:11 History and Physical has been reviewed, including an updated exam of the patient. There are NO changes in the patient's condition. Risks, benefits, and alternatives have been discussed and questions answered. Patient agrees to proceed with procedure.
--- NOTE | 2024-01-30 13:12 | WPDHPUPDATE1 ---
History and Physical Update Update Date/Time: 01/30/24 13:12 History and Physical has been reviewed, including an updated exam of the patient. There are NO changes in the patient's condition. Risks, benefits, and alternatives have been discussed and questions answered. Patient agrees to proceed with procedure.
[2024-01-30] MEDS: ceFAZolin 2 GM/D5W 50 ML 2 GM/50 ML BAG IVPB (13:20)
[2024-01-30] MEDS: LIDO 1%/EPINEPHRINE 1:100,000 50 ML VIAL 25 ML INFILTRATE (13:52)
[2024-01-30] MEDS: BUPivacaine HCL 0.5% 10 ML AMP INFILTRATE (14:44)
[2024-01-30] MEDS: fentaNYL CITRATE INJ (*CRX) 100 MCG/2 ML VIAL 25 MCG IV PUSH ×7 (15:24→16:07)
--- NOTE | 2024-01-30 15:29 | P.OP_ITS ---
Procedure Note - Detailed Date of Procedure 01/30/24 Pre-op Diagnosis O A Lt First Carpometacarpal Joint Post-op Diagnosis Same Procedure Performed Left trapezium resection arthroplasty with Arthrex internal brace suspension Surgeon Julien Jordan MD Anesthesia General Description of Procedure The area of the left 1st carpal metacarpal joint was marked with the patient's consent in the holding area. She was taken to the operating room where she was placed supine on the operating table. She had been given 2 g of Ancef preop. The patient was given general anesthesia. The left upper extremity was prepped and draped usual fashion. A time-out was held. The surgical site was marked for the incision. This area was infiltrated with 1% lidocaine with epinephrine. The extremity was exsanguinated with an Esmarch bandage and the tourniquet inflated to 250 mmHg. The incision was made as marked for exposure of the 1st carpal metacarpal joint and trapezium. Cutaneous nerves were identified and held out of the way throughout the procedure. A dorsal incision over the carpal metacarpal joint and trapezium was made with a 15 blade. Sharp and blunt dissection was continued around the trapezium as far as could be reached. The trapezium was then split with an osteotome and mallet. The trapezium was removed piecemeal with a rongeur. The x-ray image confirmed adequate resection of the trapezium. A guidewire was passed over the base of the 2nd metacarpal for images appropriate access and angle. The Arthrex C-wire was passed through the 2nd metacarpal. The guide for placement of the FiberTak was inserted over the guidewire. This was imaged once again. Using the guide, the fiber tack was passed through the metacarpal and seated securely. A 2nd fenestration made this time the base of the 1st metacarpal and the SwiveLock anchor placed there over the FiberTape complete the construct this is very stable. The tourniquet was released some small vessels were cauterized the capsule was repaired with 3-0 interrupted Vicryl sutures. The skin was closed with interrupted and running 4- 0 Monocryl sutures. 5 cc of 0.5% plain Marcaine were infiltrated around the wound area. The skin was glued. Small bandage was applied and the volar forearm based thumb spica splint was applied. She was discharged to recovery room stable condition. Implants Radiolucent Arthrex internal brace Estimated Blood Loss 5 Tourniquet Time Total Tourniquet Time: 57 Drains No Packing No Pathology None sent Complications No immediate complications Condition Stable Disposition PACU
[2024-01-30] MEDS: KETOROLAC 15 MG/ML VIAL (*BKC) IV PUSH (16:30)
[2024-01-30] MEDS: HYDROmorphone HCL INJ (*CRX) 1 MG/ML SYR 0.5 MG IV PUSH (16:52)
[2024-01-30] MEDS: oxyCODONE HCL (*CRX) 5 MG TAB IR PO (17:29)
== END 2024-01-30 18:15 | disposition home or self-care (01) ==
PROVIDERS: PCP Internal Medicine; Visit Provider Plastic Surgery
PROC: (CPT 25447; principal; 2024-01-30 12:00)
DX: M18.12 Unilateral primary osteoarthritis of first carpometacarpal joint, left hand (principal); I10 Essential (primary) hypertension; F41.9 Anxiety disorder, unspecified; F32.A Depression, unspecified; K21.9 Gastro-esophageal reflux disease without esophagitis; E78.00 Pure hypercholesterolemia, unspecified; E66.9 Obesity, unspecified; G89.29 Other chronic pain; Z68.26 Body mass index [BMI] 26.0-26.9, adult; Z98.890 Other specified postprocedural states; Z79.82 Long term (current) use of aspirin; Z80.3 Family history of malignant neoplasm of breast; Z80.41 Family history of malignant neoplasm of ovary
CPT/HCPCS: 25447; 99199; A9270; C1713; J0690; J1170; J1885; J2250; J3010; J7120

== ENCOUNTER 2024-05-01 14:08 | Outpatient (CLI) | payer BC, SELFPAY ==
--- NOTE | ~2024-05-01 | MM_ITS ---
EXAMINATION: MM screening janna BI w lis HISTORY: Screening TECHNIQUE: Craniocaudal and mediolateral oblique 3-D tomosynthesis images were obtained and synthetic 2-D images were generated. CAD analysis was submitted and interpreted. COMPARISON: Comparison to multiple prior studies sequentially, with oldest reviewed study dated 11/21. BREAST PARENCHYMAL COMPOSITION: Not dense: There are scattered areas of fibroglandular density. FINDINGS: There is no evidence of suspicious mass, calcification, or architectural distortion to sugg est malignancy in either breast. There has been no suspicious interval change. IMPRESSION: 1. No mammographic evidence of malignancy. 2. Recommend routine screening mammography in one year. BI-RADS Category 1: Negative Reviewed, dictated and finalized at location B.
== END 2024-05-01 14:09 ==
LOC: MICIMG 14:08
PROVIDERS: PCP Internal Medicine; Visit Provider Internal Medicine
DX: Z12.31 Encounter for screening mammogram for malignant neoplasm of breast (principal)
CPT/HCPCS: 77063; 77067

== ENCOUNTER 2025-03-31 07:42 | Outpatient (CLI) | payer MEDICARE, SELFPAY ==
--- NOTE | ~2025-03-31 | US_ITS ---
Limited ABDOMINAL ULTRASOUND (Doppler ultrasound interrogation techniques used as needed for this exa m.) Ordering provider: Sonido Downey DO History: . R10.9 - Unspecified abdominal pain . Comparison: None. FINDINGS: PANCREAS: Suboptimally visualized. PORTAL VEIN: Hepatopedal flow demonstrated. LIVER: Normal size and echotexture. No focal hepatic lesions or perihepatic fluid collections are brendan ntified. BILIARY DUCTS: No intra or extrahepatic biliary dilation. Common bile duct measures 3 mm in diameter which is normal for patient's age. GALLBLADDER: Normal. No stones, sludge, gallbladder wall thickening or pericholecystic fluid. Wall th ickness is 2.1 mm. Negative sonographic Anderson's sign. RIGHT KIDNEY: Normal size and measures 9.5 cm.. No hydronephrosis, solid renal mass, renal calculi or perinephric fluid collections. No renal cysts. FREE FLUID: None visualized within the upper abdomen. IMPRESSION: normal limited abdominal ultrasound. Reviewed, dictated and finalized at location A.
== END 2025-03-31 07:43 | disposition home or self-care (01) ==
LOC: MICIMG 07:42
PROVIDERS: PCP Internal Medicine; Visit Provider Internal Medicine
DX: R10.9 Unspecified abdominal pain (principal)
CPT/HCPCS: 76705

== ENCOUNTER 2025-05-04 14:31 | Outpatient (CLI) | payer MEDICARE, SELFPAY ==
--- NOTE | ~2025-05-04 | MM_ITS ---
EXAMINATION: MM screening janna BI w lis HISTORY: Screening TECHNIQUE: Craniocaudal and mediolateral oblique 3-D tomosynthesis images were obtained and synthetic 2-D images were generated. CAD analysis was submitted and interpreted. COMPARISON: Comparison to multiple prior studies sequentially, with oldest reviewed study dated 11/26. BREAST PARENCHYMAL COMPOSITION: Not dense: There are scattered areas of fibroglandular density. FINDINGS: There is no evidence of suspicious mass, calcification, or architectural distortion to sugg est malignancy in either breast. There has been no suspicious interval change. IMPRESSION: 1. No mammographic evidence of malignancy. 2. Recommend routine screening mammography in one year. BI-RADS Category 1: Negative Reviewed, dictated and finalized at location B.
== END 2025-05-04 14:32 | disposition home or self-care (01) ==
PROVIDERS: PCP Internal Medicine; Visit Provider Internal Medicine
DX: Z12.31 Encounter for screening mammogram for malignant neoplasm of breast (principal)
CPT/HCPCS: 77063; 77067

== ENCOUNTER 2025-09-08 12:12 | Outpatient (CLI) | payer MEDICARE, SELFPAY ==
--- NOTE | ~2025-09-08 | XR_ITS ---
EXAMINATION: XR knee RT 3V, 09/08/2025 12:30 CRM MARKETING EXECUTIVE HISTORY: PAIN IN RT X 3 WEEKS, CANNONT BEAR WEIGHT ON KNEE SINCE 1 COMPARISON: No comparisons available. Findings: No acute fracture or malalignment. No significant degenerative changes. Soft tissues unremarkable. Impression: No acute fracture or malalignment. Reviewed, dictated and finalized at location P. MARKETING EXECUTIVE Impression: No acute fracture or malalignment.
--- OUTSIDE RECORDS SUMMARY | 2025-09-08 13:28 | XMS_ITS | Clinical Summary ---
Author Organization [facility] Address [facility] [place] [address] Care Team Providers Care Staff Physical Therapist Name Role Phone Lowell Tyson MD Primary Care Provider [phone] Allergies No known active allergies Medications citalopram (CeleXA) 20 mg tablet take 1 tablet by oral route every day 0 0 6 Active acyclovir (ZOVIRAX) 200 mg capsule take 1 capsule by oral route every 3 hours 5 times per day 0 0 6 Active montelukast (SINGULAIR) 10 mg tablet take 1 tablet by oral route every day in the evening 0 0 6 Active lisinopril (PRINIVIL,ZESTR IL) 10 mg tablet take 1 tablet by oral route every day 0 0 6 Active hydroCHLOROthia zide (HYDRODIURIL) 12.5 mg tablet Take 12.5 mg by mouth daily 0 Active meloxicam (MOBIC) 15 mg tablet Take 15 mg by mouth daily 0 Active multivitamin capsule Take 1 capsule by mouth daily Active biotin 5 mg tablet Take by mouth Active aspirin 81 mg enteric coated tablet Take 81 mg by mouth daily Active levocetirizine (Xyzal) 5 mg tablet Take 5 mg by mouth daily Active esomeprazole DR (NexIUM) 20 mg capsule Take 20 mg by mouth daily before breakfast Active Active Problems No known active problems Surgical History Surgery Date Site/Laterality Comments CARPAL TUNNEL RELEASE Carpal tunnel release SPINE SURGERY Medical History Medical History Date Comments Hx Other Medical 2012 Spinal Surgery; Comments: KURT 09/06/2016 - Arthritis Arthritis; Comme nts: JALBINA 09/06/2016 - Hypertension Hypertension Hyperlipidemia Cataracts, bilateral Arthritis Family History Medical History Relation Name Comments Dementia Mother Cancer Other Family history of Cancer, unknown; Relation Name Status Comments Brother Alive Father Alive Mother Alive Other Sister Alive Social History Tobacco Use Types Packs/Day Years Used Date Smoking Tobacco: Never Smokeless Tobacco: Never Alcohol Use Standard Drinks/Week Comments Yes 0 (1 standard drink = 0.6 oz pur e alcohol) socially Personal Safety Answer Date Recorded Getting School Help Needed Not on file 12/20 Comments Unknown Sex and Gender Information Value Date Recorded Sex Assigned at Not on file 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 Gender Identity Not on file Sexual Orientation Not on file Last Filed Vital Signs Vital Sign Reading Time Taken Comments Blood Pressure 124/74 07/06/2020 9:36 AM CDT Pulse 67 07/06/2020 9:36 AM CDT Temperature - - Respiratory Rate - - Oxygen Saturation 95% 07/06/2020 9:36 AM CDT Inhaled Oxygen Concentration - - Weight 81.6 kg (180 lb) 07/06/2020 9:36 AM CDT Height 160 cm (5' 3) 07/06/2020 9:36 AM CDT Body Mass Index 31.89 07/06/2020 9:36 AM CDT Plan of Treatment [place] [id number] [place] [employer] [facility] [place] [id number] Care Teams Staff Physical Therapist Relationship Specialty Start Date End Date Lowell Tyson MD [address] [facility] [address] [place], [place] [id number] PCP - General Internal Medicine 07/06/20
--- OUTSIDE RECORDS SUMMARY | 2025-09-08 13:28 | XMS_ITS | Encounter Summary ---
Author Organization [facility] Address [address] [place] [address] Care Team Providers Care Ballistician Name Role Phone Lowell Tyson DO Primary Care Provider [phone] Encounter Details Date Type Department Care Team (Late st Contact Info) Description 08/24/2008 Outpatient Historical [facility] Rhianna Ruiz MD [address] [place] [address] Other Screening Mammogram Social History Tobacco Use Types Packs/Day Years Used Date Smoking Tobacco: Never Assessed Comments Unknown Sex and Gender Information Value Date Recorded Sex Assigned at Not on file Legal Sex Female 5:39 AM DEPARTMENT CHAIRPERSON Gender Identity Not on file Sexual Orientation Not on file documented as of this encounter Plan of Treatment Not on file documented as of this encounter Procedures Procedure Name Priority Date/Time Associated Diagnosis Comments MAMMO SCREENING BILAT Routine 08/24/2008 2:44 PM DEPARTMENT CHAIRPERSON documented in this encounter Results * MAMMO SCREENING BILAT (08/24/2008 2:44 PM DEPARTMENT CHAIRPERSON) Anatomical Region Laterality Modality Breast Bilateral Other 08/24/2008 2:44 PM DEPARTMENT CHAIRPERSON Narrative 08/25/2008 10:25 AM DEPARTMENT CHAIRPERSON [address] [place], [place] [address] Admit Date: 08/24/2008 BUZZ DURAN Sex: F Admit Prov: RHIANNA RUIZ Date: 1960 Primary Care Prov: PCP, UNKNOWN CMRN: [id number] Room: [facility] SSN: IMAGING SERVICES Ordering Prov: RHIANNA RUIZ Accession Number: [id number] Interpretation BILATERAL SCREENING MAMMOGRAM 08/24/2008 Reason for this examination: Annual screening study. FINDINGS: The parenchyma is very dense bilaterally. This lowers the sensitivity of mammography in detecting disease. There is no mass, malignant calcification, lymphadenopathy, architectural distortion or other sign of malignancy. SUMMARY: Dense mammary parenchyma. No mammographic evidence of malignancy. Overall assessment: BIRADS category 1 - Negative Assessment BIRADS: 1-Negative Recommendation: Normal interval follow-up Dictated by: LENO ENGLISH Electronically signed by: LENO ENGLISH 08/25/2008 10:25 Transcribed: 08/25/2008 09:38 AMK Procedure Note Leno English MD - 08/25/[address] [address] Admit Date: 08/24/2008 BUZZ DURAN Sex: F Admit Prov: RHIANNA RUIZ Date: 1960 Primary Care Prov: PCP, UNKNOWN CMRN: [id number] Room: [facility] SSN: IMAGING SERVICES Ordering Prov: RHIANNA RUIZ Interpretation BILATERAL SCREENING MAMMOGRAM 08/24/2008 Reason for this examination: Annual screening study. FINDINGS: The parenchyma is very dense bilaterally. This lowersthe sensitivity of mammography in detecting disease. There is no mass, malignant calcification, lymphadenopathy, architectural distortion orother sign of malignancy. SUMMARY: Dense mammary parenchyma. No mammographic evidence of malignancy. Overall assessment: BIRADS category 1 - Negative Assessment BIRADS: 1-Negative Recommendation: Normal interval follow-up Dictated by: LENO ENGLISH Electronically signed by: LENO ENGLISH 08/25/2008 10:25 Transcribed: 08/25/2008 09:38 AMK Rhianna Ruiz MD MAMMO ORDERABLES Final Result documented in this encounter Visit Diagnoses Diagnosis Other screening mammogram documented in this encounter Care Teams Ballistician Relationship Specialty Start Date End Date Lowell Tyson DO [address] [facility] [address] [place] [address] PCP - General 08/23/09 documented as of this encounter
--- OUTSIDE RECORDS SUMMARY | 2025-09-08 13:28 | XMS_ITS | Clinical Summary ---
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 Gender Identity Not on file Sexual Orientation Not on file Occupation Industry Job Start Date Job End Date Not on file Not on file Not on file Not on file Plan of Treatment Health Maintenance Due Date Last Done Comments DTAP/TDAP/TD VACCINES (1 - Tdap) 02/17/1979 COLORECTAL SCREENING 02/17/2005 Colorectal Cancer Screening 02/17/2005 FIT-DNA Q 3 years 02/17/2005 FIT/FOBT Q 1 year 02/17/2005 Flex Sig/CT Colonography Q 5 years 02/17/2005 PNEUMOCOCCAL VACCINE 50+ YEA RS (1 of 1 - PCV) 02/17/2010 ZOSTER VACCINE (1 of 2) 02/17/2010 BREAST CANCER SCREENING 10/23/2014 10/23/19 14, 10/16/2012, 10/15/2011, Additional history exists OSTEOPOROSIS SCREENING 02/17/2025 INFLUENZA VACCINE (#1) 2025 RSV VACCINE (60+ or ) (1 - 1-dose 75+ series) 02/17/2035 Procedures Procedure Name Priority Date/Time Associated Diagnosis Comments MAMMO SCREEN BILAT W OR WO CAD Routine 10/23/2013 11:07 AM AUTOMOTIVE SERVICE CASHIER Other screening mammogram from Last 3 Months or Most Recently Relevant to Health Maintenance Results * MAMMO DIGITAL SCREEN BILAT (10/23/2013 11:07 AM AUTOMOTIVE SERVICE CASHIER) Anatomical Region Laterality Modality Breast Bilateral Mammography Narrative 10/26/2013 9:32 AM AUTOMOTIVE SERVICE CASHIER Bilateral digital screening mammogram with computer assisted diagnosis History: Annual screening exam. Findings: A bilateral screening mammogram was performed. Comparison is made to : 10/16/2012, 10/15/2011, 10/11/2010, 08/29/2009, 08/24/2008 There are scattered fibroglandular densities. No new masses, suspicious calcifications, or areas of asymmetry or distortion are identified. CAD was utilized. Impression: Negative screening mammogram. Recommendation: Routine annual follow-up Overall Assessment: Birads Category 1: Negative Procedure Note Lynette Munson MD - 10/26/2013 Bilateral digital screening mammogram with computer assisted diagnosis History: Annual screening exam. Findings: A bilateral screening mammogram was performed. Comparison ismade to : 10/16/2012, 10/15/2011, 10/11/2010, 08/29/2009, 08/24/2008There are scattered fibroglandular densities. No new masses, suspiciouscalcifications, or areas of asymmetry or distortion are identified. CADwas utilized. Impression: Negative screening mammogram. Recommendation: Routine annual follow-up Overall Assessment: Birads Category 1: Negative Rhianna Ruiz MD MAMMO ORDERABLES Final Result from Last 3 Months or Most Recently Relevant to Health Maintenance Care Teams Sports Photographer Relationship Specialty Start Date End Date Lowell Tyson DO [address] [address] PCP - General 08/23/09
== END 2025-09-08 12:13 | disposition home or self-care (01) ==
PROVIDERS: PCP Internal Medicine; Visit Provider Internal Medicine
DX: M25.561 Pain in right knee (principal)
CPT/HCPCS: 73562

== ENCOUNTER 2025-10-06 09:35 | Outpatient (CLI) | payer MEDICARE, SELFPAY ==
--- NOTE | ~2025-10-06 | XR_ITS ---
EXAMINATION: XR shoulder LT min 2V, XR shoulder RT min 2V DATE: 10/06/2025 09:52 INDICATION: Right shoulder primary osteoarthritis TECHNIQUE: 1. AP internally and externally rotated, AP oblique externally rotated and axillary views of the left shoulder were obtained. 2. AP internally and externally rotated, AP oblique externally rotated and axillary views of the affected shoulder were obtained. COMPARISON: None FINDINGS: Right shoulder: Normal alignment. No fracture. Moderate osteoarthritis at the right glenohumeral and acromioclavicular joints. Large marginal osteophytes along the inferior aspect of the humeral head. There are also loose osteochondral bodies along the long head biceps tendon sheath. Soft tissues are unremarkable. Vi sualized portion of the lungs are clear. Left shoulder: Normal alignment. No fracture. No significant change in moderate left glenohumeral osteoarthritis with the severity of joint space narrowing best appreciated on the axillary projection. Moderate size marginal ossified swelling the inferomedial aspect of the humeral head. Moderate left acromioclavicular osteoarthritis. Soft tissues are unremarkable. Visualized portion of the lungs are clear. Heart size is normal. IMPRESSION: Moderate bilateral glenohumeral and acromioclavicular osteoarthritis. Reviewed, dictated and finalized at location A. OR WEB DEVELOPER IMPRESSION: Moderate bilateral glenohumeral and acromioclavicular osteoarthritis.
--- OUTSIDE RECORDS SUMMARY | 2025-10-06 09:42 | XMS_ITS | Clinical Summary ---
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
--- OUTSIDE RECORDS SUMMARY | 2025-10-06 09:42 | XMS_ITS | Encounter Summary ---
Author Organization [facility] Address [address] [place] [address] Care Team Providers Care Hostage Negotiator Name Role Phone Lowell Tyson DO Primary Care Provider [phone] Encounter Details Date Type Department Care Team (Late st Contact Info) Description 08/24/2008 Outpatient Historical HIS M[facility] Rhianna Ruiz MD [address] [place] [address] Other Screening Mammogram Social History Tobacco Use Types Packs/Day Years Used Date Smoking Tobacco: Never Assessed Comments Unknown Sex and Gender Information Value Date Recorded Sex Assigned at Not on file Legal Sex Female 5:39 AM VIDEO AND SOUND RECORDER Gender Identity Not on file Sexual Orientation Not on file documented as of this encounter Plan of Treatment Not on file documented as of this encounter Procedures Procedure Name Priority Date/Time Associated Diagnosis Comments MAMMO SCREENING BILAT Routine 08/24/2008 2:44 PM VIDEO AND SOUND RECORDER documented in this encounter Results * MAMMO SCREENING BILAT (08/24/2008 2:44 PM VIDEO AND SOUND RECORDER) Anatomical Region Laterality Modality Breast Bilateral Other 08/24/2008 2:44 PM VIDEO AND SOUND RECORDER Narrative 08/25/2008 10:25 AM VIDEO AND SOUND RECORDER [id number] [place], [place] [address] Admit Date: 08/24/2008 BUZZ DURAN Sex: F Admit Prov: RHIANNA RUIZ Date: 1960 Primary Care Prov: PCP, UNKNOWN CMRN: [id number] Room: [facility] SSN: IMAGING SERVICES Ordering Prov: RHIANNA RUIZ Accession Number: [id number] Interpretation BILATERAL SCREENING MAMMOGRAM 08/24/2008 Reason for [...] Procedure Note Leno English MD - 08/25/[address] [address] Admit Date: 08/24/2008 BUZZ DURAN Sex: F Admit Prov: RHIANNA RUIZ Date: 1960 Primary Care Prov: PCP, UNKNOWN CMRN: [id number] Room: [facility] SSN: IMAGING SERVICES Ordering Prov: RHIANNA RUIZ [...] mammogram documented in this encounter Care Teams Hostage Negotiator Relationship Specialty Start Date End Date Lowell Tyson DO [address] [facility] [address] [place] [address] PCP - General 08/23/09 documented as of this encounter
--- OUTSIDE RECORDS SUMMARY | 2025-10-06 09:42 | XMS_ITS | Clinical Summary ---
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 Gender Identity Not on file Sexual Orientation [...] OR WO CAD Routine 10/23/2013 11:07 AM EVENT SALES MANAGER Other screening mammogram from Last 3 Months or Most Recently Relevant to Health Maintenance Results * MAMMO DIGITAL SCREEN BILAT (10/23/2013 11:07 AM EVENT SALES MANAGER) Anatomical Region Laterality Modality Breast Bilateral Mammography Narrative 10/26/2013 9:32 AM EVENT SALES MANAGER Bilateral digital screening mammogram with computer assisted [...] Recently Relevant to Health Maintenance Care Teams Self Pay Collector Relationship Specialty Start Date End Date Lowell Tyson DO [address] [address] PCP - General 08/23/09
== END 2025-10-06 09:36 | disposition home or self-care (01) ==
PROVIDERS: PCP Internal Medicine; Visit Provider Orthopaedic Surgery
DX: M19.011 Primary osteoarthritis, right shoulder (principal); M19.012 Primary osteoarthritis, left shoulder
CPT/HCPCS: 73030